=== PATIENT | female | born 2000 | race Caucasian/White ===

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

== ENCOUNTER 2018-06-25 19:23 | Emergency (ER) | payer SELFPAY ==
[2018-06-25] MEDS ORDERED: Sodium Chloride 0.9% 1000 ML 1,000 ML IV STA (19:50)
[2018-06-25] MEDS ORDERED: Zofran 4 MG/2 ML VIAL IV ONE (19:50)
--- NOTE | 2018-06-25 19:50 | ERPHSYRPT ---
- History of Present Illness Time Seen by Provider: 06/25/18 19:41 Source: patient Exam Limitations: no limitations Physician History: The patient is the patient is a 17-year-old female with her boyfriend complaining that she suddenly became hot, sick, and vomited twice. She now has bilateral lower rib pain after vomiting. She denies diarrhea. She denies abdominal pain. She denies fever. Her past missed her period is unknown because since she was on the depth or shot 2 years ago, her periods have been extremely irregular. She denies being lightheaded. Timing/Duration: today, hour(s) (1), gradual onset, improved Severity: mild Modifying Factors: Improves With: nothing Associated Symptoms: nausea, vomiting, other (rib pain), No abdominal pain, No chills, No syncope Allergies/Adverse Reactions: sulfamethoxazole [From Bactrim] Allergy (Verified 12/20/17 13:56) trimethoprim [From Bactrim] Allergy (Verified 12/20/17 13:56) Hx Tetanus, Diphtheria Vaccination/Date Given: No Hx Influenza Vaccination/Date Given: Yes Hx Pneumococcal Vaccination/Date Given: No - Review of Systems Constitutional: No Fever, No Chills Eyes: No Symptoms Ears, Nose, & Throat: No Symptoms Respiratory: No Cough, No Dyspnea Cardiac: Other (rib pain), No Chest Pain, No Edema, No Syncope Abdominal/Gastrointestinal: Nausea, Vomiting, No Abdominal Pain, No Diarrhea Genitourinary Symptoms: No Dysuria Musculoskeletal: No Back Pain, No Neck Pain Skin: No Rash Neurological: No Dizziness, No Focal Weakness, No Sensory Changes Psychological: No Symptoms Endocrine: No Symptoms Hematologic/Lymphatic: No Symptoms Immunological/Allergic: No Symptoms All Other Systems: Reviewed and Negative - Past Medical History Pertinent Past Medical History: Yes Neurological History: No Pertinent History ENT History: No Pertinent History Cardiac History: No Pertinent History Respiratory History: No Pertinent History Endocrine Medical History: No Pertinent History Musculoskeletal History: No Pertinent History GI Medical History: No Pertinent History History: No Pertinent History Psycho-Social History: No Pertinent History Female Reproductive Disorders: No Pertinent History Other Medical History: lt leg abscess--summer 2015 - Past Surgical History Past Surgical History: No Neuro Surgical History: No Pertinent History Cardiac: No Pertinent History Respiratory: No Pertinent History Gastrointestinal: No Pertinent History Genitourinary: No Pertinent History Musculoskeletal: No Pertinent History Female Surgical History: No Pertinent History - Social History Smoking Status: Current every day smoker How long have you smoked: 1 Exposure to second hand smoke: Yes Alcohol Use: None Drug Use: none Patient Lives Alone: No Significant Family History: no pertinent family hx - Nursing Vital Signs Nursing Vital Signs: Initial Vital Signs Temperature 98.6 F 06/25/18 19:23 Pulse Rate 73 06/25/18 19:23 Respiratory Rate 18 06/25/18 19:23 Blood Pressure 96/72 06/25/18 19:23 O2 Sat by Pulse Oximetry 100 06/25/18 19:23 Pain Scale Pain Intensity 10 - Physical Exam General Appearance: no apparent distress, alert Eye Exam: PERRL/EOMI, eyes nml inspection Ears, Nose, Throat Exam: normal ENT inspection, TMs normal, pharynx normal, moist mucous membranes Neck Exam: normal inspection, non-tender, supple, full range of motion Respiratory Exam: normal breath sounds, chest tenderness (mild tenderness to bilateral lower anterior ribs), lungs clear, No respiratory distress Cardiovascular Exam: regular rate/rhythm, normal heart sounds, normal peripheral pulses Gastrointestinal/Abdomen Exam: soft, normal bowel sounds, No tenderness, No mass Pelvic Exam: not done Rectal Exam: not done Back Exam: normal inspection, normal range of motion, No CVA tenderness, No vertebral tenderness Extremity Exam: normal inspection, normal range of motion, pelvis stable Neurologic Exam: alert, oriented x 3, cooperative, normal mood/affect, nml cerebellar function, nml station & gait, sensation nml, No motor deficits Skin Exam: normal color, warm, dry, No rash Lymphatic Exam: No adenopathy SpO2 Interpretation: normal SpO2: 100 Oxygen Delivery: Room Air Ordered Tests: Active Orders 24 hr Category Date Time Status IV Insertion STAT Care 06/25/18 19:50 Active CBC W DIFF Stat Lab 06/25/18 20:00 Completed CMP Stat Lab 06/25/18 20:00 Completed HCG QUALITATIVE,SERUM Stat Lab 06/25/18 20:00 Completed LIPASE Stat Lab 06/25/18 20:00 Completed Lactic Acid Stat Lab 06/25/18 20:00 Completed OCCULT BLOOD, EMESIS Stat Lab 06/25/18 20:57 Completed UA W/RFX UR CULTURE Stat Lab 06/25/18 20:58 Completed Urine Triage Profile Stat Lab 06/25/18 20:58 Completed Medication Summary Discontinued Medications Generic Name Dose Route Start Last Admin Trade Name Yuval PRN Reason Stop Dose Admin Acetaminophen 1,000 mg 06/25/18 20:12 06/25/18 20:42 Tylenol Extra Strength 500 Mg PO 06/25/18 20:13 1,000 mg STAT STA Administration Acetaminophen Confirm 06/25/18 20:16 Tylenol Extra Strength 500 Mg Administered 06/25/18 20:17 Dose 1,000 mg .ROUTE .STK-MED ONE Sodium Chloride 1,000 mls @ 999 mls/hr 06/25/18 19:50 06/25/18 20:04 Sodium Chloride 0.9% 1000 Ml IV 06/25/18 20:50 999 mls/hr .Q1H1M STA Administration Sodium Chloride Confirm 06/25/18 19:54 Sodium Chloride 0.9% 1000 Ml Administered 06/25/18 19:55 Dose 1,000 mls @ ud .ROUTE .STK-MED ONE Ondansetron HCl 4 mg 06/25/18 19:50 06/25/18 20:05 Zofran 4 Mg/2 Ml Vial IV 06/25/18 19:51 4 mg STAT ONE Administration Ondansetron HCl Confirm 06/25/18 19:54 Zofran 4 Mg/2 Ml Vial Administered 06/25/18 19:55 Dose 4 mg .ROUTE .STK-MED ONE Promethazine HCl 12.5 mg 06/25/18 20:46 06/25/18 20:53 Phenergan 25 Mg Inj IV 06/25/18 20:47 12.5 mg STAT ONE Administration Promethazine HCl Confirm 06/25/18 20:51 Phenergan 25 Mg Inj Administered 06/25/18 20:52 Dose 25 mg .ROUTE .STK-MED ONE Lab/Rad Data: Laboratory Result Diagrams 06/25/18 20:00 06/25/18 20:00 Laboratory Results 06/25/18 06/25/18 06/25/18 Range/Units 20:58 20:58 20:57 WBC (4.0-10.5) K/mm3 RBC (4.1-5.4) M/mm3 Hgb (12.0-16.0) gm/dl Hct (35-47) % MCV (78-100) fl MCH (26-32) pg MCHC (32-36) g/dl RDW (11.5-14.0) % Plt Count (150-450) K/mm3 MPV (6-9.5) fl Gran % (36.0-66.0) % Eos # (Auto) (0-0.5) Absolute Lymphs (auto) (1.0-4.6) Absolute Monos (auto) (0.0-1.3) Lymphocytes % (24.0-44.0) % Monocytes % (0.0-12.0) % Eosinophils % (0.00-5.0) % Basophils % (0.0-0.4) % Absolute Granulocytes (1.4-6.9) Basophils # (0-0.4) Sodium (137-145) mmol/L Potassium (3.5-5.1) mmol/L Chloride (98-107) mmol/L Carbon Dioxide (22-30) mmol/L Anion Gap (5-15) MEQ/L BUN (7-17) mg/dL Creatinine (0.52-1.04) mg/dL Estimated GFR ML/MIN Glucose (74-106) mg/dL Lactic Acid (0.4-2.0) Calcium (8.4-10.2) mg/dL Total Bilirubin (0.2-1.3) mg/dL AST (14-36) U/L ALT (0-35) U/L Alkaline Phosphatase (38-126) U/L Serum Total Protein (6.3-8.2) g/dL Albumin (3.5-5.0) g/dL Lipase (23-300) U/L Serum , Qual (Negative) Urine Color YELLOW (YELLOW) Urine Appearance CLEAR (CLEAR) Urine pH 7.0 (5-6) Ur Specific [place] 1.019 (1.005-1.025) Urine Protein NEGATIVE (Negative) Urine Ketones NEGATIVE (NEGATIVE) Urine Blood NEGATIVE (0-5) Lior/ul Urine Nitrite NEGATIVE (NEGATIVE) Urine Bilirubin NEGATIVE (NEGATIVE) Urine Urobilinogen NEGATIVE (0-1) mg/dL Ur Leukocyte Esterase NEGATIVE (NEGATIVE) Urine WBC (Auto) 3-5 (0-5) /HPF Urine RBC (Auto) 0-2 (0-2) /HPF U Hyaline Cast (Auto) 0-2 (0-2) /LPF U Epithel Cells (Auto) RARE (FEW) /HPF Urine Mucus (Auto) SLIGHT (NEGATIVE) /HPF Urine Culture Reflexed NO (NO) Urine Glucose NEGATIVE (NEGATIVE) mg/dL Emesis for Blood NEGATIVE (Negative) Urine Opiates Level NEGATIVE (NEGATIVE) Ur Methadone NEGATIVE (NEGATIVE) Urine Barbiturates NEGATIVE (NEGATIVE) Ur Phencyclidine (PCP) NEGATIVE (NEGATIVE) Urine Amphetamine NEGATIVE (NEGATIVE) U Benzodiazepine Level NEGATIVE (NEGATIVE) Urine Cocaine NEGATIVE (NEGATIVE) Urine Marijuana (THC) NEGATIVE (NEGATIVE) 06/25/18 06/25/18 06/25/18 Range/Units 20:00 20:00 20:00 WBC (4.0-10.5) K/mm3 RBC (4.1-5.4) M/mm3 Hgb (12.0-16.0) gm/dl Hct (35-47) % MCV (78-100) fl MCH (26-32) pg MCHC (32-36) g/dl RDW (11.5-14.0) % Plt Count (150-450) K/mm3 MPV (6-9.5) fl Gran % (36.0-66.0) % Eos # (Auto) (0-0.5) Absolute Lymphs (auto) (1.0-4.6) Absolute Monos (auto) (0.0-1.3) Lymphocytes % (24.0-44.0) % Monocytes % (0.0-12.0) % Eosinophils % (0.00-5.0) % Basophils % (0.0-0.4) % Absolute Granulocytes (1.4-6.9) Basophils # (0-0.4) Sodium 138 (137-145) mmol/L Potassium 3.5 (3.5-5.1) mmol/L Chloride 102 (98-107) mmol/L Carbon Dioxide 26 (22-30) mmol/L Anion Gap 13.8 (5-15) MEQ/L BUN 13 (7-17) mg/dL Creatinine 0.55 (0.52-1.04) mg/dL Estimated GFR > 60.0 ML/MIN Glucose 97 (74-106) mg/dL Lactic Acid 1.3 (0.4-2.0) Calcium 9.9 (8.4-10.2) mg/dL Total Bilirubin 0.40 (0.2-1.3) mg/dL AST 48 H (14-36) U/L ALT 50 H (0-35) U/L Alkaline Phosphatase 97 (38-126) U/L Serum Total Protein 7.3 (6.3-8.2) g/dL Albumin 4.6 (3.5-5.0) g/dL Lipase 167 (23-300) U/L Serum , Qual POSITIVE (Negative) Urine Color (YELLOW) Urine Appearance (CLEAR) Urine pH (5-6) Ur Specific [place] (1.005-1.025) Urine Protein (Negative) Urine Ketones (NEGATIVE) Urine Blood (0-5) Lior/ul Urine Nitrite (NEGATIVE) Urine Bilirubin (NEGATIVE) Urine Urobilinogen (0-1) mg/dL Ur Leukocyte Esterase (NEGATIVE) Urine WBC (Auto) (0-5) /HPF Urine RBC (Auto) (0-2) /HPF U Hyaline Cast (Auto) (0-2) /LPF U Epithel Cells (Auto) (FEW) /HPF Urine Mucus (Auto) (NEGATIVE) /HPF Urine Culture Reflexed (NO) Urine Glucose (NEGATIVE) mg/dL Emesis for Blood (Negative) Urine Opiates Level (NEGATIVE) Ur Methadone (NEGATIVE) Urine Barbiturates (NEGATIVE) Ur Phencyclidine (PCP) (NEGATIVE) Urine Amphetamine (NEGATIVE) U Benzodiazepine Level (NEGATIVE) Urine Cocaine (NEGATIVE) Urine Marijuana (THC) (NEGATIVE) 06/25/18 Range/Units 20:00 WBC 9.8 (4.0-10.5) K/mm3 RBC 4.66 (4.1-5.4) M/mm3 Hgb 14.6 (12.0-16.0) gm/dl Hct 42.4 (35-47) % MCV 91.0 (78-100) fl MCH 31.3 (26-32) pg MCHC 34.4 (32-36) g/dl RDW 12.0 (11.5-14.0) % Plt Count 285 (150-450) K/mm3 MPV 10.9 H (6-9.5) fl Gran % 52.1 (36.0-66.0) % Eos # (Auto) 0.41 (0-0.5) Absolute Lymphs (auto) 3.35 (1.0-4.6) Absolute Monos (auto) 0.90 (0.0-1.3) Lymphocytes % 34.1 (24.0-44.0) % Monocytes % 9.2 (0.0-12.0) % Eosinophils % 4.2 (0.00-5.0) % Basophils % 0.4 (0.0-0.4) % Absolute Granulocytes 5.12 (1.4-6.9) Basophils # 0.04 (0-0.4) Sodium (137-145) mmol/L Potassium (3.5-5.1) mmol/L Chloride (98-107) mmol/L Carbon Dioxide (22-30) mmol/L Anion Gap (5-15) MEQ/L BUN (7-17) mg/dL Creatinine (0.52-1.04) mg/dL Estimated GFR ML/MIN Glucose (74-106) mg/dL Lactic Acid (0.4-2.0) Calcium (8.4-10.2) mg/dL Total Bilirubin (0.2-1.3) mg/dL AST (14-36) U/L ALT (0-35) U/L Alkaline Phosphatase (38-126) U/L Serum Total Protein (6.3-8.2) g/dL Albumin (3.5-5.0) g/dL Lipase (23-300) U/L Serum , Qual (Negative) Urine Color (YELLOW) Urine Appearance (CLEAR) Urine pH (5-6) Ur Specific [place] (1.005-1.025) Urine Protein (Negative) Urine Ketones (NEGATIVE) Urine Blood (0-5) Lior/ul Urine Nitrite (NEGATIVE) Urine Bilirubin (NEGATIVE) Urine Urobilinogen (0-1) mg/dL Ur Leukocyte Esterase (NEGATIVE) Urine WBC (Auto) (0-5) /HPF Urine RBC (Auto) (0-2) /HPF U Hyaline Cast (Auto) (0-2) /LPF U Epithel Cells (Auto) (FEW) /HPF Urine Mucus (Auto) (NEGATIVE) /HPF Urine Culture Reflexed (NO) Urine Glucose (NEGATIVE) mg/dL Emesis for Blood (Negative) Urine Opiates Level (NEGATIVE) Ur Methadone (NEGATIVE) Urine Barbiturates (NEGATIVE) Ur Phencyclidine (PCP) (NEGATIVE) Urine Amphetamine (NEGATIVE) U Benzodiazepine Level (NEGATIVE) Urine Cocaine (NEGATIVE) Urine Marijuana (THC) (NEGATIVE) - Progress Progress: improved Progress Note: 06/25/18 20:30 The patient was given Zofran 4 mg IV. Several minutes after the Zofran, she had one large emesis. Counseled pt/family regarding: lab results, diagnosis, need for follow-up, smoking cessation - Departure Time of Disposition: 21:35 Departure Disposition: Home Clinical Impression: Vomiting, Condition: Stable Critical Care Time: No Referrals: NEVILLE TINSLEY NP [Primary Care Provider] - Additional Instructions: You had some episodes of vomiting this evening. Your laboratory tests shows that you are . You were given Zofran 4 mg, Phenergan 12.5 mg, and fluids by IV in the ER. You were given Tylenol 1000 mg orally in the ER. May continue to take Phenergan 25 mg orally every 8 hours as needed. Follow-up with a local OB doctor within the next week. Stop smoking. You may take Tylenol 1000 mg every 6-8 hours as needed. Prescriptions: Promethazine HCl 25 mg [Phenergan 25 mg] 25 mg PO Q8H PRN PRN #10 tablet PRN Reason: Nausea/Vomiting
[2018-06-25] MEDS ORDERED: Sodium Chloride 0.9% 1000 ML 1,000 ML ONE (19:54)
[2018-06-25] MEDS ORDERED: Zofran 4 MG/2 ML VIAL ONE (19:54)
[2018-06-25] MEDS ORDERED: TYLENOL EXTRA STRENGTH 500 MG PO STA (20:12)
[2018-06-25] MEDS ORDERED: TYLENOL EXTRA STRENGTH 500 MG ONE (20:16)
[2018-06-25 20:28] LABS: BASOPHIL % 0.4 % (0.0-0.4); Basophil (Absolute #) 0.04 (0-0.4); Eosinophil % 4.2 % (0.00-5.0); Eosinophil (Absolute #) 0.41 (0-0.5); Granulocyte Absolute (ANC) 5.12 (1.4-6.9); Granulocytes % 52.1 % (36.0-66.0); Hematocrit 42.4 % (35-47); Hemoglobin 14.6 gm/dl (12.0-16.0); Lymphocyte (Absolute #) 3.35 (1.0-4.6); Lymphocytes % 34.1 % (24.0-44.0); Mean Corpuscular Hemoglobin 31.3 pg (26-32); Mean Corpuscular Hgb Concent. 34.4 g/dl (32-36); Mean Platelet Volume 10.9 fl (6-9.5); Monocytes % 9.2 % (0.0-12.0); Platelet Count 285 K/mm3 (150-450); Red Blood Count 4.66 M/mm3 (4.1-5.4); White Blood Count 9.8 K/mm3 (4.0-10.5)
[2018-06-25 20:31] LABS: ALBUMIN 4.6 g/dL (3.5-5.0); ALKALINE PHOSPHATASE 97 U/L (38-126); ANION GAP 13.8 MEQ/L (5-15); BLOOD UREA NITROGEN 13 mg/dL (7-17); CHLORIDE 102 mmol/L (98-107); Calcium 9.9 mg/dL (8.4-10.2); Carbon Dioxide 26 mmol/L (22-30); Creatinine 1 0.55 mg/dL (0.52-1.04); Glucose 97 mg/dL (74-106); LIPASE 167 U/L (23-300); Potassium 3.5 mmol/L (3.5-5.1); SGOT/AST 48 U/L (14-36); SGPT/ALT 50 U/L (0-35); SODIUM 138 mmol/L (137-145); Total Protein 7.3 g/dL (6.3-8.2)
[2018-06-25] MEDS ORDERED: Phenergan 25 MG INJ IV ONE (20:46)
[2018-06-25 20:50] VITALS: BP 110/60; PULSE 68
[2018-06-25] MEDS ORDERED: Phenergan 25 MG INJ ONE (20:51)
[2018-06-25 21:21] LABS: Appearance CLEAR (CLEAR); Bilirubin NEGATIVE (NEGATIVE); Blood NEGATIVE Ery/ul (0-5); Glucose NEGATIVE (NEGATIVE); Ketones NEGATIVE (NEGATIVE); Leukocyte Esterase NEGATIVE (NEGATIVE); Nitrite NEGATIVE (NEGATIVE); Protein,Urine Dip NEGATIVE (Negative); Specific Gravity 1.019 (1.005-1.025); Urobilinogen NEGATIVE mg/dL (0-1)
[2018-06-25 21:26] LABS: Amphetamine,Urine NEGATIVE (NEGATIVE); Barbiturate,Urine NEGATIVE (NEGATIVE); Benzodiazepine,Urine NEGATIVE (NEGATIVE); Cocaine,Urine NEGATIVE (NEGATIVE); Methadone,Urine NEGATIVE (NEGATIVE); Opiate,Urine NEGATIVE (NEGATIVE); PCP,Urine NEGATIVE (NEGATIVE); THC,Urine NEGATIVE (NEGATIVE)
[2018-06-25 21:48] VITALS: O2SAT 96
== END 2018-06-25 21:48 | disposition home or self-care (01) ==
LOC: ED 19:23
DX: O21.9 Vomiting of pregnancy, unspecified (principal)
CPT/HCPCS: 36000; 36415; 80053; 80307; 81001; 82271; 83605; 83690; 84703; 85025; 96374; 96375; 99284; J2405; J2550; A9270-GY

== ENCOUNTER 2018-07-06 06:52 | Emergency (ER) | payer MEDICAID ==
--- NOTE | 2018-07-06 07:03 | ERPHSYRPT ---
- History of Present Illness Time Seen by Provider: 07/06/18 07:02 Source: patient, family Exam Limitations: no limitations Physician History: 17 y/o white female, who is 5 weeks , presents with several month h/o right forearm pain and swelling. pt sx tx with brace and resolved. sx returned this past tuesday. pt stated she continued to wear brace. Occurred: days ago (4) Method of Injury: other (no injury) Quality: aching Severity of Pain-Max: moderate Severity of Pain-Current: mild Extremities Pain Location: forearm: right Modifying Factors: Improves With: nothing Associated Symptoms: none, No back pain, No chest discomfort, No chest pain, No dyspnea, No short of breath, No vomiting Allergies/Adverse Reactions: sulfamethoxazole [From Bactrim] Allergy (Verified 12/20/17 13:56) trimethoprim [From Bactrim] Allergy (Verified 12/20/17 13:56) Home Medications: Vits W-Ca,Fe,FA(<1Mg) [] 1 each PO DAILY 07/06/18 [History] Hx Tetanus, Diphtheria Vaccination/Date Given: No Hx Influenza Vaccination/Date Given: Yes Hx Pneumococcal Vaccination/Date Given: No - Review of Systems Constitutional: No Symptoms Eyes: No Symptoms Ears, Nose, & Throat: No Symptoms Respiratory: No Symptoms Cardiac: No Symptoms Abdominal/Gastrointestinal: No Symptoms Genitourinary Symptoms: No Symptoms Musculoskeletal: Other (right forearm tenderness swelling) Skin: No Symptoms Neurological: No Symptoms Psychological: No Symptoms Endocrine: No Symptoms Hematologic/Lymphatic: No Symptoms Immunological/Allergic: No Symptoms All Other Systems: Reviewed and Negative - Past Medical History Pertinent Past Medical History: Yes Neurological History: No Pertinent History ENT History: No Pertinent History Cardiac History: No Pertinent History Respiratory History: No Pertinent History Endocrine Medical History: No Pertinent History Musculoskeletal History: No Pertinent History GI Medical History: No Pertinent History History: No Pertinent History Psycho-Social History: No Pertinent History Female Reproductive Disorders: No Pertinent History Other Medical History: lt leg abscess--summer 2015 - Past Surgical History Past Surgical History: No Neuro Surgical History: No Pertinent History Cardiac: No Pertinent History Respiratory: No Pertinent History Gastrointestinal: No Pertinent History Genitourinary: No Pertinent History Musculoskeletal: No Pertinent History Female Surgical History: No Pertinent History - Social History Smoking Status: Current every day smoker How long have you smoked: 1 Exposure to second hand smoke: Yes Alcohol Use: None Drug Use: none Patient Lives Alone: No Significant Family History: no pertinent family hx - Nursing Vital Signs Nursing Vital Signs: Initial Vital Signs Temperature 98.1 F 07/06/18 07:00 Pulse Rate 92 H 07/06/18 07:00 Respiratory Rate 16 07/06/18 07:00 Blood Pressure 106/60 07/06/18 07:00 O2 Sat by Pulse Oximetry 99 07/06/18 07:00 Pain Scale Pain Intensity 10 - Physical Exam General Appearance: no apparent distress, alert, anxiety Eyes, Ears, Nose, Throat Exam: normal ENT inspection Neck Exam: normal inspection, non-tender, supple, full range of motion Cardiovascular/Respiratory Exam: chest non-tender, normal breath sounds, regular rate/rhythm Abdominal Exam: non-tender, soft, No guarding, No tenderness Back Exam: normal inspection, normal range of motion, No CVA tenderness, No vertebral tenderness Shoulder Exam: normal inspection, non-tender, no evidence of injury, normal ROM Elbow/Forearm Exam: no evidence of injury, normal ROM, soft tissue tenderness, swelling (soft tissue right forearm; right elbow normal) Wrist Exam: normal inspection, non-tender, no evidence of injury, normal ROM Hand Exam: normal inspection, non-tender, no evidence of injury, normal ROM Neuro/Tendon Exam: normal sensation, normal motor functions, normal tendon functions Mental Status Exam: alert, oriented x 3, cooperative Skin Exam: normal color, warm, dry SpO2 Interpretation: normal Oxygen Delivery: Room Air - Course Nursing assessment & vital signs reviewed: Yes Ordered Tests: Active Orders 24 hr Category Date Time Status VENOUS UNILAT/LIMITED EXTREMIT [US] Stat Exams 07/06/18 07:18 Ordered Lab/Rad Data: venous doppler-negative for dvt. no hematoma or masses - Progress Progress: unchanged Counseled pt/family regarding: diagnosis, need for follow-up, rad results - Departure Time of Disposition: 08:46 Departure Disposition: Home Clinical Impression: Right forearm pain Condition: Stable Critical Care Time: No Referrals: NEVILLE TINSLEY NP [Primary Care Provider] - Additional Instructions: alternate ice and heat every 6 hours for 48 hours. use your brace and tylenol for pain. follow up with your primary doctor for further management.
[2018-07-06 08:26] VITALS: BP 104/64; PULSE 88; O2SAT 98
--- NOTE | 2018-07-06 09:28 | XRAY ---
Indication: Right wrist lump and pain. Two-dimensional sonogram and color Doppler imaging of the major venous vessels of the right upper extremity was performed. Comparison: None No thrombus seen in the visualized right jugular, subclavian, axillary, cephalic, brachial, basilic, median cubital, radial, and ulnar veins. These veins demonstrate normal compressibility and normal venous waveforms. Targeted ultrasound over the lump/pain demonstrates nonspecific tiny sliver of fluid. Impression: Right arm negative for DVT.
== END 2018-07-06 08:55 | disposition home or self-care (01) ==
LOC: ED 06:52
DX: O26.891 Other specified pregnancy related conditions, first trimester (principal); Z3A.01 Less than 8 weeks gestation of pregnancy; M79.631 Pain in right forearm
CPT/HCPCS: 93971; 99283

== ENCOUNTER 2018-12-16 23:53 | Emergency (ER) | payer OTHER ==
[2018-12-17 00:56] VITALS: BP 100/58; PULSE 85; O2SAT 98
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
== END 2018-12-17 01:32 | disposition home or self-care (01) ==
LOC: ED 23:53
DX: S80.01XA Contusion of right knee, initial encounter (principal); M25.561 Pain in right knee; V43.62XA Car passenger injured in collision with other type car in traffic accident, initial encounter; Z33.1 Pregnant state, incidental; Z3A.28 28 weeks gestation of pregnancy
CPT/HCPCS: 99283; L1830

== ENCOUNTER 2019-01-01 11:39 | Observation (INO) | payer OTHER ==
[2019-01-01 13:07] VITALS: BP 101/59; PULSE 75; O2SAT 98
== END 2019-01-01 13:12 | disposition home or self-care (01) ==
LOC: OB 11:39
PROVIDERS: ADMIT Family Medicine; ATTEND Family Medicine
DX: Z34.03 Encounter for supervision of normal first pregnancy, third trimester (principal)
CPT/HCPCS: G0378

== ENCOUNTER 2019-01-29 12:00 | Observation (INO) | payer OTHER ==
[2019-01-29 12:31] VITALS: BP 112/56; PULSE 99; O2SAT 97
== END 2019-01-29 14:00 | disposition home or self-care (01) ==
LOC: OB 12:00
PROVIDERS: ADMIT Family Medicine; ATTEND Family Medicine
DX: Z34.03 Encounter for supervision of normal first pregnancy, third trimester (principal)
CPT/HCPCS: 59025; G0378

== ENCOUNTER 2019-02-25 14:24 | Observation (INO) | payer OTHER ==
[2019-02-25 14:55] VITALS: BP 111/70; PULSE 109
[2019-02-25 15:28] LABS: Appearance CLOUDY (CLEAR); Bacteria MANY /HPF (NEGATIVE); Bilirubin NEGATIVE (NEGATIVE); Blood NEGATIVE Ery/ul (0-5); Epithelial Cells MODERATE /HPF (FEW); Glucose NEGATIVE (NEGATIVE); Ketones NEGATIVE (NEGATIVE); Leukocyte Esterase LARGE (NEGATIVE); Mucus SLIGHT /HPF (NEGATIVE); Nitrite NEGATIVE (NEGATIVE); Protein,Urine Dip NEGATIVE (Negative); RBC 0-2 /HPF (0-2); Specific Gravity 1.009 (1.005-1.025); Urobilinogen NEGATIVE mg/dL (0-1)
[2019-02-25 15:37] LABS: Amphetamine,Urine NEGATIVE (NEGATIVE); Barbiturate,Urine NEGATIVE (NEGATIVE); Benzodiazepine,Urine NEGATIVE (NEGATIVE); Cocaine,Urine NEGATIVE (NEGATIVE); Methadone,Urine NEGATIVE (NEGATIVE); Opiate,Urine NEGATIVE (NEGATIVE); PCP,Urine NEGATIVE (NEGATIVE); THC,Urine NEGATIVE (NEGATIVE)
== END 2019-02-25 16:20 | disposition home or self-care (01) ==
LOC: UNDOADMOB 14:24 → OB 14:24 → UNDODISOB 16:20
PROVIDERS: ADMIT Family Medicine; ATTEND Family Medicine
DX: Z34.03 Encounter for supervision of normal first pregnancy, third trimester (principal)
CPT/HCPCS: 80307; 81001; 87086; G0378

== ENCOUNTER 2019-03-04 02:27 | Inpatient (IN) | payer OTHER ==
[2019-03-04 03:47] LABS: Amphetamine,Urine NEGATIVE (NEGATIVE); Barbiturate,Urine NEGATIVE (NEGATIVE); Benzodiazepine,Urine NEGATIVE (NEGATIVE); Cocaine,Urine NEGATIVE (NEGATIVE); Methadone,Urine NEGATIVE (NEGATIVE); Opiate,Urine NEGATIVE (NEGATIVE); PCP,Urine NEGATIVE (NEGATIVE); THC,Urine NEGATIVE (NEGATIVE)
[2019-03-04] MEDS ORDERED: Lactated Ringers 1,000 ML IV ONE ×3 (07:25→08:35)
[2019-03-04] MEDS ORDERED: PITOCIN 30 UNITS/ LR 500 ML 500 ML IV SCH (07:30)
[2019-03-04] MEDS ORDERED: Ephedrine Sulfate 50 MG/ML IV PRN (07:33)
[2019-03-04] MEDS ORDERED: OB EPIDURAL NAROPIN/SUFENTANIL IN NACL EPIDURAL PRN (07:33)
[2019-03-04] MEDS ORDERED: XYLOCAINE 2%/Epi 1:200000 20ML VIAL MPF IJ SCH (07:45)
[2019-03-04] MEDS ORDERED: XYLOCAINE 2%/Epi 1:200000 20ML VIAL MPF ONE (07:58)
[2019-03-04 08:00] LABS: Hemoglobin 11.9 gm/dl (12.0-16.0); Mean Cell Volume 95.1 fl (78-100); Mean Corpuscular Hemoglobin 32.3 pg (26-32); Platelet Count 303 K/mm3 (150-450); Red Blood Count 3.68 M/mm3 (4.1-5.4); Red Cell Distribution Width 12.3 % (11.5-14.0); White Blood Count 19.8 K/mm3 (4.0-10.5)
[2019-03-04 08:47] LABS: Lymphocytes 15 % (24-44); Neutrophils 85 % (36.0-66.0); Total Cells Counted 100
[2019-03-04 08:48] LABS: Platelet Estimate NORMAL (NORMAL)
[2019-03-04] MEDS: Lactated Ringers 1,000 ML IV SCH ×2 (09:15→18:19)
[2019-03-04 10:10] VITALS: O2SAT 100
[2019-03-04] MEDS ORDERED: XYLOCAINE 1% HCL 20 ML MDV IJ PRN (12:31)
[2019-03-04] MEDS ORDERED: Dulcolax 10 MG SUPP PR PRN (18:22)
[2019-03-04] MEDS ORDERED: CORTISONE 1% CREAM TP PRN (18:22)
[2019-03-04] MEDS ORDERED: Mylicon 80MG PO PRN (18:22)
[2019-03-04] MEDS ORDERED: Anucort-HC SUPPOSITORY PR PRN (18:22)
[2019-03-04] MEDS ORDERED: Dermoplast Spray TP PRN (18:22)
[2019-03-04] MEDS ORDERED: TYLENOL EXTRA STRENGTH 500 MG PO PRN (18:22)
[2019-03-04] MEDS ORDERED: LANSINOH 40 GM TOP PRN (18:22)
[2019-03-04] MEDS ORDERED: NORCO 5/325 MG PO PRN (18:22)
[2019-03-04] MEDS: MOTRIN 400 MG PO PRN (22:48)
[2019-03-04] MEDS: Colace 100 MG PO SCH ×2 (22:56→23:11)
[2019-03-05 05:28] LABS: Hematocrit 32.1 % (35-47); Hemoglobin 10.9 gm/dl (12.0-16.0); Mean Cell Volume 95.8 fl (78-100); Mean Corpuscular Hemoglobin 32.5 pg (26-32); Mean Platelet Volume 10.3 fl (6-9.5); Platelet Count 282 K/mm3 (150-450); Red Blood Count 3.35 M/mm3 (4.1-5.4); Red Cell Distribution Width 12.4 % (11.5-14.0); White Blood Count 22.9 K/mm3 (4.0-10.5)
[2019-03-05 06:20] LABS: Lymphocytes 23 % (24-44); Monocyte 7 % (0.0-12.0); Neutrophils 70 % (36.0-66.0); Total Cells Counted 100
[2019-03-05 06:22] LABS: Platelet Estimate NORMAL (NORMAL)
[2019-03-05] MEDS: Colace 100 MG PO SCH ×2 (11:50→21:03)
[2019-03-05] MEDS: FERREX 150 PO SCH (11:50)
[2019-03-05] MEDS: MOTRIN 400 MG PO PRN ×2 (13:25→22:22)
[2019-03-06 05:45] LABS: BASOPHIL % 0.5 % (0.0-0.4); Basophil (Absolute #) 0.07 (0-0.4); Eosinophil % 3.7 % (0.00-5.0); Eosinophil (Absolute #) 0.55 (0-0.5); Granulocyte Absolute (ANC) 8.96 (1.4-6.9); Hematocrit 32.8 % (35-47); Hemoglobin 11.1 gm/dl (12.0-16.0); Lymphocyte (Absolute #) 3.96 (1.0-4.6); Lymphocytes % 26.9 % (24.0-44.0); Mean Corpuscular Hemoglobin 32.8 pg (26-32); Mean Corpuscular Hgb Concent. 33.8 g/dl (32-36); Mean Platelet Volume 10.4 fl (6-9.5); Monocytes % 7.9 % (0.0-12.0); Platelet Count 282 K/mm3 (150-450); Red Blood Count 3.38 M/mm3 (4.1-5.4); Red Cell Distribution Width 12.6 % (11.5-14.0); White Blood Count 14.7 K/mm3 (4.0-10.5)
--- NOTE | 2019-03-06 07:40 | PCM.DS ---
Discharge Summary Date of Admission: 03/04/19 07:30 Admitting Physician: CAMILA BURGER Primary Care Provider: CAMILA BURGER Allergies Allergies sulfamethoxazole [From Bactrim] Allergy (Severe, Verified 01/29/19 12:15) hives and trouble breathing trimethoprim [From Bactrim] Allergy (Severe, Verified 01/29/19 12:15) hives and trouble breathing Hospital Summary - Hospital Course Hospital Course: Pt came in as 18 yo at 39w 2d in spontaneous labor. AROM with clear fluid. She delivered a 6lb 9oz baby girl without complication; had no sutures. Placenta delivered spontaneously, intact. Baby , no issues. Mom using motrin for pain. Discharging to home today. - Vitals & Intake/Output Vital Signs: Vital Signs Temperature 98.0 F 03/06/19 02:00 Pulse Rate 77 03/06/19 02:00 Respiratory Rate 18 03/06/19 02:00 Blood Pressure 111/62 03/06/19 02:00 O2 Sat by Pulse Oximetry 100 03/04/19 11:30 Intake & Output: Intake & Output 03/03/19 03/04/19 03/05/19 03/06/19 11:59 11:59 11:59 11:59 Intake Total 2724 Output Total 500 Balance 2224 Weight 75.296 kg - Lab Result Diagrams: 03/06/19 05:05 Lab Results-Last 24 Hrs: Lab Results-Last 24 Hours 03/06/19 Range/Units 05:05 WBC 14.7 H (4.0-10.5) K/mm3 RBC 3.38 L (4.1-5.4) M/mm3 Hgb 11.1 L (12.0-16.0) gm/dl Hct 32.8 L (35-47) % MCV 97.0 (78-100) fl MCH 32.8 H (26-32) pg MCHC 33.8 (32-36) g/dl RDW 12.6 (11.5-14.0) % Plt Count 282 (150-450) K/mm3 MPV 10.4 H (6-9.5) fl Gran % 61.0 (36.0-66.0) % Eos # (Auto) 0.55 H (0-0.5) Absolute Lymphs (auto) 3.96 (1.0-4.6) Absolute Monos (auto) 1.16 (0.0-1.3) Lymphocytes % 26.9 (24.0-44.0) % Monocytes % 7.9 (0.0-12.0) % Eosinophils % 3.7 (0.00-5.0) % Basophils % 0.5 (0.0-0.4) % Absolute Granulocytes 8.96 H (1.4-6.9) Basophils # 0.07 (0-0.4) Micro Results-Entire Visit: Microbiology 03/04/19 11:00 Urine Culture - Final Catherized NO GROWTH - Procedures and Test Procedures and Tests throughout Hospitalization: Therapy Orders & Screens 03/04/19 17:58 Standby Routine Comment: Diagnosis: R/O Labor Discharge Exam General Appearance: no apparent distress, alert Neurologic Exam: oriented x 3, cooperative Eye Exam: eyes nml inspection Ears, Nose, Throat Exam: moist mucous membranes Neck Exam: normal inspection Respiratory Exam: normal breath sounds, lungs clear, No crackles/rales, No rhonchi, No wheezing Cardiovascular Exam: regular rate/rhythm, normal heart sounds, No murmur Gastrointestinal/Abdomen Exam: soft, normal bowel sounds, other (fundus firming inferior to umbilicus), No tenderness, No distention Extremity Exam: normal inspection, No pedal edema, No swelling Skin Exam: normal color, warm, dry, No rash Final Diagnosis/Problem List - Final Discharge Diagnosis/Problem (1) Spontaneous vaginal delivery Current Visit: Yes Status: Acute Assessment & Plan: Doing great, home today. Code(s): O80 - ENCOUNTER FOR FULL-TERM UNCOMPLICATED DELIVERY (2) Leukocytosis Current Visit: Yes Status: Acute Assessment & Plan: resolving Code(s): D72.829 - ELEVATED WHITE BLOOD CELL COUNT, UNSPECIFIED (3) Anemia Current Visit: Yes Status: Acute Assessment & Plan: very mild, not home on iron Code(s): D64.9 - ANEMIA, UNSPECIFIED - Discharge Disposition: Home, Self-Care Condition: Good Prescriptions: New Ibuprofen 600 mg PO TID PRN #35 tablet PRN Reason: Pain Continue Vits W-Ca,Fe,FA(<1Mg) [] 1 tab PO DAILY Discontinued Ferrous Gluconate 324 mg PO DAILY Follow up with: CAMILA BURGER [Primary Care Provider] - 1 Week
[2019-03-06] MEDS: FERREX 150 PO SCH (09:10)
[2019-03-06] MEDS: Colace 100 MG PO SCH (09:11)
[2019-03-06 16:33] VITALS: BP 101/57; PULSE 68
== END 2019-03-06 19:10 | disposition home or self-care (01) | DRG 807 ==
LOC: OB 02:27 → OBSVTOIN 07:30 → OB 07:30
PROVIDERS: ADMIT Family Medicine; ATTEND Family Medicine
PROC: 10E0XZZ Delivery of Products of Conception, External Approach (ICD-10-PCS; principal; 2019-03-04)
DX: O70.0 First degree perineal laceration during delivery (principal); Z37.0 Single live birth; Z3A.39 39 weeks gestation of pregnancy; D64.9 Anemia, unspecified; D72.829 Elevated white blood cell count, unspecified
CPT/HCPCS: 36415; 80307; 85025; 87086; 87340; 94799; G0378; J2590; J2795; A9270-GY

== ENCOUNTER 2019-03-26 19:49 | Observation (INO) | payer OTHER ==
[2019-03-26] MEDS ORDERED: Sodium Chloride 0.9% 1000 ML 1,000 ML IV STA (21:11)
--- NOTE | 2019-03-26 21:16 | ERPHSYRPT ---
- History of Present Illness Time Seen by Provider: 03/26/19 21:13 Source: patient Exam Limitations: no limitations Patient Subjective Stated Complaint: Fever/william breast pain Triage Nursing Assessment: Patient ambulated back to ED and transferred self to bed. Patient complains of fever as high as 99.9 prior to coming in. Patient complains of william breast pain 06/21. Patient had baby 3 weeks ago. Patient has been and unable to for the pain. William breasts noted to be red, swollen and painful with crusty yellow drainage coming from right breast nipple. Physician History: 18-year-old white female status post vaginal delivery 3 weeks ago. Arrives with complaint of bilateral breast tenderness erythema to bilateral breast she states she has a mucousy discharge from her breasts. And temperature to 99.9 symptoms since today she states she's had some vomiting. Past medical history left leg abscess. Past surgical history negative. Timing/Duration: today Severity: moderate Modifying Factors: Improves With: nothing Associated Symptoms: nausea, vomiting, fever (temperature 99.9), other ( bilateral breast tenderness,), No abdominal pain, No shortness of breath, No heartburn, No diaphoresis, No cough, No chills, No chest pain, No headaches, No loss of appetite, No malaise, No rash, No syncope, No seizure, No weakness Allergies/Adverse Reactions: sulfamethoxazole [From Bactrim] Allergy (Severe, Verified 03/26/19 20:47) hives and trouble breathing trimethoprim [From Bactrim] Allergy (Severe, Verified 03/26/19 20:47) hives and trouble breathing Home Medications: Vits W-Ca,Fe,FA(<1Mg) [] 1 tab PO DAILY 07/06/18 [History] Hx Tetanus, Diphtheria Vaccination/Date Given: Yes Hx Influenza Vaccination/Date Given: Yes Hx Pneumococcal Vaccination/Date Given: No Immunizations Up to Date: Yes - Review of Systems Constitutional: Fever, No Chills, No Fatigue, No Lethargy, No Malaise, No Night Sweats, No Weakness, No Weight Loss Eyes: No Symptoms Ears, Nose, & Throat: No Symptoms Respiratory: No Cough, No Dyspnea Cardiac: No Chest Pain, No Edema, No Syncope Abdominal/Gastrointestinal: Nausea, Vomiting, No Abdominal Pain, No Diarrhea, No Constipation, No Hematemesis, No Hematochezia, No Melena, No Dysphagia, No Appetite Changes Genitourinary Symptoms: No Dysuria Musculoskeletal: No Back Pain, No Neck Pain Skin: Other (bilateral breast tenderness, erythema both breasts) Neurological: No Dizziness, No Focal Weakness, No Sensory Changes Psychological: No Symptoms Endocrine: No Symptoms All Other Systems: Reviewed and Negative - Past Medical History Pertinent Past Medical History: Yes Neurological History: No Pertinent History ENT History: No Pertinent History Cardiac History: No Pertinent History Respiratory History: No Pertinent History Endocrine Medical History: No Pertinent History Musculoskeletal History: No Pertinent History GI Medical History: No Pertinent History History: No Pertinent History Psycho-Social History: No Pertinent History Female Reproductive Disorders: No Pertinent History Other Medical History: lt leg abscess--summer 2015 - Past Surgical History Past Surgical History: No Neuro Surgical History: No Pertinent History Cardiac: No Pertinent History Respiratory: No Pertinent History Gastrointestinal: No Pertinent History Genitourinary: No Pertinent History Musculoskeletal: No Pertinent History Female Surgical History: No Pertinent History - Social History Smoking Status: Current every day smoker How long have you smoked: 3 years Exposure to second hand smoke: Yes Alcohol Use: None Drug Use: none Patient Lives Alone: No Significant Family History: no pertinent family hx - Female History Hx Last Menstrual Period: 05/27/2018 Hx Now: No - Nursing Vital Signs Nursing Vital Signs: Initial Vital Signs Temperature 99.9 F 03/26/19 20:50 Pulse Rate 117 H 03/26/19 20:50 Respiratory Rate 20 03/26/19 20:50 Blood Pressure 129/86 03/26/19 20:50 O2 Sat by Pulse Oximetry 98 03/26/19 20:50 Pain Scale Pain Intensity 10 - Physical Exam General Appearance: mild distress, alert Eye Exam: PERRL/EOMI, eyes nml inspection Ears, Nose, Throat Exam: normal ENT inspection, TMs normal, pharynx normal, moist mucous membranes Neck Exam: normal inspection, non-tender, supple, full range of motion Respiratory Exam: normal breath sounds, lungs clear, No respiratory distress Cardiovascular Exam: regular rate/rhythm, normal heart sounds, normal peripheral pulses, capillary refill <2 sec Gastrointestinal/Abdomen Exam: soft, normal bowel sounds, No tenderness, No mass Back Exam: normal inspection, normal range of motion, No CVA tenderness, No vertebral tenderness Extremity Exam: normal inspection, normal range of motion, pelvis stable Neurologic Exam: alert, oriented x 3, cooperative, normal mood/affect, nml cerebellar function, nml station & gait, sensation nml, No motor deficits Skin Exam: other (breasts are tender, erythema extending approximately 1.5 cm past areola bilaterally) SpO2 Interpretation: normal (98%) SpO2: 98 Ordered Tests: Active Orders 24 hr Category Date Time Status IV Insertion STAT Care 03/26/19 21:11 Active CBC W DIFF Stat Lab 03/26/19 21:40 Completed CMP Stat Lab 03/26/19 21:40 Completed CULTURE,URINE Stat Lab 03/26/19 21:30 Received CULTURE,WOUND Stat Lab 03/26/19 21:45 Received Lactic Acid Stat Lab 03/26/19 22:05 Completed UA W/RFX UR CULTURE Stat Lab 03/26/19 21:30 Completed Medication Summary Generic Name Dose Route Start Last Admin Trade Name Freq PRN Reason Stop Dose Admin Ceftriaxone Sodium/Dextrose 1 g in 50 mls @ 100 mls/hr 03/26/19 22:07 Rocephin 1 Gm-D5w 50 Ml Bag IV 03/26/19 22:36 STAT STA Discontinued Medications Generic Name Dose Route Start Last Admin Trade Name Freq PRN Reason Stop Dose Admin Acetaminophen 650 mg 03/26/19 22:08 Tylenol 325 Mg PO 03/26/19 22:09 STAT ONE Sodium Chloride 1,000 mls @ 999 mls/hr 03/26/19 21:11 03/26/19 21:42 Sodium Chloride 0.9% 1000 Ml IV 03/26/19 22:11 999 mls/hr .Q1H1M STA Administration Sodium Chloride Confirm 03/26/19 21:29 Sodium Chloride 0.9% 1000 Ml Administered 03/26/19 21:30 Dose 1,000 mls @ ud .ROUTE .STK-MED ONE Ceftriaxone Sodium/Dextrose Confirm 03/26/19 22:09 Rocephin 1 Gm-D5w 50 Ml Bag Administered 03/26/19 22:10 Dose 1 g in 50 mls @ ud IV .STK-MED ONE Lab/Rad Data: Laboratory Result Diagrams 03/26/19 21:40 03/26/19 21:40 Laboratory Results 03/26/19 03/26/19 03/26/19 Range/Units 22:05 21:40 21:40 WBC 17.7 H (4.0-10.5) K/mm3 RBC 4.17 (4.1-5.4) M/mm3 Hgb 13.9 (12.0-16.0) gm/dl Hct 39.2 (35-47) % MCV 94.0 (78-100) fl MCH 33.3 H (26-32) pg MCHC 35.5 (32-36) g/dl RDW 11.8 (11.5-14.0) % Plt Count 295 (150-450) K/mm3 MPV 10.6 H (6-9.5) fl Gran % 90.0 H (36.0-66.0) % Eos # (Auto) 0.18 (0-0.5) Absolute Lymphs (auto) 1.14 (1.0-4.6) Absolute Monos (auto) 0.43 (0.0-1.3) Lymphocytes % 6.4 L (24.0-44.0) % Monocytes % 2.4 (0.0-12.0) % Eosinophils % 1.0 (0.00-5.0) % Basophils % 0.2 (0.0-0.4) % Absolute Granulocytes 15.89 H (1.4-6.9) Basophils # 0.04 (0-0.4) Sodium 138 (137-145) mmol/L Potassium 4.2 (3.5-5.1) mmol/L Chloride 108 H (98-107) mmol/L Carbon Dioxide 23 (22-30) mmol/L Anion Gap 12.2 (5-15) MEQ/L BUN 11 (7-17) mg/dL Creatinine 0.63 (0.52-1.04) mg/dL Estimated GFR > 60.0 ML/MIN Glucose 85 (74-106) mg/dL Lactic Acid 1.0 (0.4-2.0) Calcium 9.6 (8.4-10.2) mg/dL Total Bilirubin 0.60 (0.2-1.3) mg/dL AST 17 (14-36) U/L ALT 13 (0-35) U/L Alkaline Phosphatase 128 H (38-126) U/L Serum Total Protein 7.8 (6.3-8.2) g/dL Albumin 4.4 (3.5-5.0) g/dL Urine Color (YELLOW) Urine Appearance (CLEAR) Urine pH (5-6) Ur Specific [place] (1.005-1.025) Urine Protein (Negative) Urine Ketones (NEGATIVE) Urine Blood (0-5) Lior/ul Urine Nitrite (NEGATIVE) Urine Bilirubin (NEGATIVE) Urine Urobilinogen (0-1) mg/dL Ur Leukocyte Esterase (NEGATIVE) Urine WBC (Auto) (0-5) /HPF Urine RBC (Auto) (0-2) /HPF U Epithel Cells (Auto) (FEW) /HPF Urine Bacteria (Auto) (NEGATIVE) /HPF Urine Culture Reflexed (NO) Urine Glucose (NEGATIVE) mg/dL 03/26/19 Range/Units 21:30 WBC (4.0-10.5) K/mm3 RBC (4.1-5.4) M/mm3 Hgb (12.0-16.0) gm/dl Hct (35-47) % MCV (78-100) fl MCH (26-32) pg MCHC (32-36) g/dl RDW (11.5-14.0) % Plt Count (150-450) K/mm3 MPV (6-9.5) fl Gran % (36.0-66.0) % Eos # (Auto) (0-0.5) Absolute Lymphs (auto) (1.0-4.6) Absolute Monos (auto) (0.0-1.3) Lymphocytes % (24.0-44.0) % Monocytes % (0.0-12.0) % Eosinophils % (0.00-5.0) % Basophils % (0.0-0.4) % Absolute Granulocytes (1.4-6.9) Basophils # (0-0.4) Sodium (137-145) mmol/L Potassium (3.5-5.1) mmol/L Chloride (98-107) mmol/L Carbon Dioxide (22-30) mmol/L Anion Gap (5-15) MEQ/L BUN (7-17) mg/dL Creatinine (0.52-1.04) mg/dL Estimated GFR ML/MIN Glucose (74-106) mg/dL Lactic Acid (0.4-2.0) Calcium (8.4-10.2) mg/dL Total Bilirubin (0.2-1.3) mg/dL AST (14-36) U/L ALT (0-35) U/L Alkaline Phosphatase (38-126) U/L Serum Total Protein (6.3-8.2) g/dL Albumin (3.5-5.0) g/dL Urine Color YELLOW (YELLOW) Urine Appearance SLIGHTLY CLOUDY (CLEAR) Urine pH 5.0 (5-6) Ur Specific [place] 1.010 (1.005-1.025) Urine Protein NEGATIVE (Negative) Urine Ketones NEGATIVE (NEGATIVE) Urine Blood MODERATE (0-5) Lior/ul Urine Nitrite NEGATIVE (NEGATIVE) Urine Bilirubin NEGATIVE (NEGATIVE) Urine Urobilinogen NEGATIVE (0-1) mg/dL Ur Leukocyte Esterase MODERATE (NEGATIVE) Urine WBC (Auto) 26-50 (0-5) /HPF Urine RBC (Auto) 11-15 (0-2) /HPF U Epithel Cells (Auto) MODERATE (FEW) /HPF Urine Bacteria (Auto) FEW (NEGATIVE) /HPF Urine Culture Reflexed YES (NO) Urine Glucose NEGATIVE (NEGATIVE) mg/dL - Progress Progress: improved Progress Note: 03/26/19 22:12 Patient's temperature increased to 102.8. Lactate has been ordered and results are pending. Rocephin 1 g IV has been ordered for patient. Patient is receiving 1 L of normal saline. Blood cultures have been ordered Tylenol 650 mg have been ordered. I have discussed the patient's case with Dr. Gomez. Will plan to place patient on observation. Continue Tylenol and IV fluids. Continue Rocephin. Impression 1 mastitis. 2 fever. 03/26/19 22:15 Patient's lactate 1.0. She has good perfusion to all extremities vitals are stable with the exception of elevated temperature. Patient does have a UTI as well - Departure Departure Disposition: Observation Clinical Impression: Mastitis Fever Qualifiers: Fever type: unspecified Qualified Code(s): R50.9 - Fever, unspecified UTI (urinary tract infection) Qualifiers: Urinary tract infection type: site unspecified Hematuria presence: without hematuria Qualified Code(s): N39.0 - Urinary tract infection, site not specified Condition: Fair Critical Care Time: No Referrals: CAMILA GOMEZ [Primary Care Provider] -
[2019-03-26] MEDS ORDERED: Sodium Chloride 0.9% 1000 ML 1,000 ML ONE (21:29)
[2019-03-26 21:51] LABS: BASOPHIL % 0.2 % (0.0-0.4); Basophil (Absolute #) 0.04 (0-0.4); Eosinophil (Absolute #) 0.18 (0-0.5); Granulocyte Absolute (ANC) 15.89 (1.4-6.9); Hematocrit 39.2 % (35-47); Hemoglobin 13.9 gm/dl (12.0-16.0); Lymphocyte (Absolute #) 1.14 (1.0-4.6); Lymphocytes % 6.4 % (24.0-44.0); Mean Corpuscular Hemoglobin 33.3 pg (26-32); Mean Corpuscular Hgb Concent. 35.5 g/dl (32-36); Mean Platelet Volume 10.6 fl (6-9.5); Monocyte (Absolute #) 0.43 (0.0-1.3); Monocytes % 2.4 % (0.0-12.0); Platelet Count 295 K/mm3 (150-450); Red Blood Count 4.17 M/mm3 (4.1-5.4); Red Cell Distribution Width 11.8 % (11.5-14.0); White Blood Count 17.7 K/mm3 (4.0-10.5)
[2019-03-26 21:57] LABS: Appearance SLIGHTLY CLOUDY (CLEAR); Bacteria FEW /HPF (NEGATIVE); Bilirubin NEGATIVE (NEGATIVE); Blood MODERATE Ery/ul (0-5); Epithelial Cells MODERATE /HPF (FEW); Glucose NEGATIVE (NEGATIVE); Ketones NEGATIVE (NEGATIVE); Leukocyte Esterase MODERATE (NEGATIVE); Nitrite NEGATIVE (NEGATIVE); Protein,Urine Dip NEGATIVE (Negative); Urobilinogen NEGATIVE mg/dL (0-1); WBC 26-50 /HPF (0-5)
[2019-03-26 22:02] LABS: ALBUMIN 4.4 g/dL (3.5-5.0); ALKALINE PHOSPHATASE 128 U/L (38-126); ANION GAP 12.2 MEQ/L (5-15); BLOOD UREA NITROGEN 11 mg/dL (7-17); CHLORIDE 108 mmol/L (98-107); Calcium 9.6 mg/dL (8.4-10.2); Carbon Dioxide 23 mmol/L (22-30); Creatinine 1 0.63 mg/dL (0.52-1.04); Glucose 85 mg/dL (74-106); Potassium 4.2 mmol/L (3.5-5.1); SGOT/AST 17 U/L (14-36); SGPT/ALT 13 U/L (0-35); SODIUM 138 mmol/L (137-145); Total Protein 7.8 g/dL (6.3-8.2)
[2019-03-26] MEDS ORDERED: ROCEPHIN 1 Gm-D5w 50 ml Bag** 1 G/50 ML IVPB IV STA (22:07)
[2019-03-26] MEDS ORDERED: TYLENOL 325 MG PO ONE (22:08)
[2019-03-26] MEDS ORDERED: ROCEPHIN 1 Gm-D5w 50 ml Bag** 1 G/50 ML IVPB IV ONE (22:09)
[2019-03-26] MEDS ORDERED: TYLENOL 325 MG ONE (22:14)
[2019-03-26] MEDS ORDERED: Sodium Chloride 0.9% 1000 ML 1,000 ML IV SCH (22:45)
[2019-03-26] MEDS ORDERED: TYLENOL 325 MG PO PRN (22:45)
[2019-03-27 06:04] LABS: BASOPHIL % 0.2 % (0.0-0.4); Basophil (Absolute #) 0.02 (0-0.4); Eosinophil % 3.3 % (0.00-5.0); Eosinophil (Absolute #) 0.36 (0-0.5); Granulocytes % 70.8 % (36.0-66.0); Hemoglobin 11.4 gm/dl (12.0-16.0); Lymphocyte (Absolute #) 2.09 (1.0-4.6); Lymphocytes % 19.2 % (24.0-44.0); Mean Cell Volume 95.4 fl (78-100); Mean Corpuscular Hemoglobin 32.9 pg (26-32); Mean Corpuscular Hgb Concent. 34.5 g/dl (32-36); Mean Platelet Volume 10.6 fl (6-9.5); Monocyte (Absolute #) 0.71 (0.0-1.3); Monocytes % 6.5 % (0.0-12.0); Platelet Count 258 K/mm3 (150-450); Red Blood Count 3.46 M/mm3 (4.1-5.4); Red Cell Distribution Width 11.7 % (11.5-14.0); White Blood Count 10.9 K/mm3 (4.0-10.5)
[2019-03-27 06:25] LABS: ALBUMIN 3.4 g/dL (3.5-5.0); ALKALINE PHOSPHATASE 89 U/L (38-126); ANION GAP 8.2 MEQ/L (5-15); BLOOD UREA NITROGEN 9 mg/dL (7-17); CHLORIDE 109 mmol/L (98-107); Calcium 8.5 mg/dL (8.4-10.2); Carbon Dioxide 25 mmol/L (22-30); Creatinine 1 0.68 mg/dL (0.52-1.04); Glucose 87 mg/dL (74-106); Potassium 3.3 mmol/L (3.5-5.1); SGOT/AST 14 U/L (14-36); SGPT/ALT 11 U/L (0-35); SODIUM 139 mmol/L (137-145); Total Protein 6.1 g/dL (6.3-8.2)
[2019-03-27 08:16] VITALS: O2SAT 95
--- NOTE | 2019-03-27 09:17 | PCM.SSS ---
History of Present Illness - Chief Complaint Chief Complaint: Mastitis, Fever, UTI History of Present Illness: is a 18 year old female pt of mine from [place] [address] approx 3 weeks post , who was admitted through ER with mastitis. She started having bilat breast pain yesterday with temp to 99 at home. Up to 102.8 in the ER. She was given IV rocephin x 1 and was admitted d/t WBC count 17.7. This morning her WBC are 10.9. She is denying vomiting. Still having breast pain. Has stopped nursing. Advised pt to express breast milk (can hand express - she does not want to pump) . She may be able to d/c today on po antibiotics. f/u in office next week unless her condition worsens. - Review of Systems Constitutional: Fever Skin: Other (bilate breast pain and erythema) All Other Systems: Reviewed and Negative Medications & Allergies Home Medications: Home Medication List Vits W-Ca,Fe,FA(<1Mg) [] 1 tab PO DAILY 07/06/18 [History Confirmed 03/26/19] Ibuprofen 600 mg PO TID PRN #35 tablet 03/06/19 [Rx Confirmed 03/26/19] Amox Tr/Potass Clav. 875 mg [Augmentin 875-125 Tablet] 875 mg PO BID #14 tablet 03/27/19 [Rx] Allergies/Adverse Reactions: Allergies Allergy/AdvReac Type Severity Reaction Status Date / Time sulfamethoxazole Allergy Severe Verified 03/26/19 20:47 [From Bactrim] trimethoprim [From Bactrim] Allergy Severe Verified 03/26/19 20:47 - Past Medical History Past Medical History: Yes Neurological History: No Pertinent History ENT History: No Pertinent History Cardiac History: No Pertinent History Respiratory History: No Pertinent History Endocrine Medical History: No Pertinent History Musculoskelatal History: No Pertinent History GI Medical History: No Pertinent History History: No Pertinent History Pyscho-Social History: No Pertinent History Reproductive Disorders: No Pertinent History Comment: lt leg abscess--summer 2015 - Female History Hx Last Menstrual Period: 05/27/2018 Are you now?: No - Past Surgical History Past Surgical History: No Neuro Surgical History: No Pertinent History Cardiac History: No Pertinent History Respiratory Surgery: No Pertinent History GI Surgical History: No Pertinent History Genitourinary Surgical Hx: No Pertinent History Musculskeletal Surgical Hx: No Pertinent History Female Surgical History: No Pertinent History - Social History Smoking Status: Current every day smoker How long have you smoked: 3 years Exposure to second hand smoke: Yes Alcohol: None Drug Use: none Significant Family History: no pertinent family hx - Physical Exam Vital Signs: Vital Signs - 24 hr Temp Pulse Resp BP Pulse Ox 03/27/19 08:00 98.5 F 75 19 104/58 95 03/27/19 04:00 100.0 F 110 H 17 109/68 98 03/27/19 00:00 100.1 F 94 H 18 102/57 94 L 03/26/19 23:49 100.1 F 94 H 18 102/57 94 L 03/26/19 22:45 94 L 03/26/19 22:20 101 H 18 128/82 98 03/26/19 22:16 98 03/26/19 21:40 102.8 F 98 H 20 124/96 98 03/26/19 20:50 99.9 F 117 H 20 129/86 98 General Appearance: mild distress, alert Neurologic Exam: oriented x 3, cooperative Eye Exam: eyes nml inspection Ears, Nose, Throat Exam: moist mucous membranes Neck Exam: normal inspection, non-tender, No lymphadenopathy Respiratory Exam: normal breath sounds, lungs clear, No crackles/rales, No rhonchi, No wheezing Cardiovascular Exam: regular rate/rhythm, normal heart sounds, No murmur Gastrointestinal/Abdomen Exam: soft, normal bowel sounds, No tenderness, No distention, No mass, No guarding, No rebound Skin Exam: other (bilat breasts with erythema extending several cm out from aureola. Milk dripping from R nipple. Quite ttp and warm.), No rash Results - Labs Lab/Micro Results: Lab Results-Last 24 Hours 03/26/19 03/26/19 03/26/19 Range/Units 21:30 21:40 21:40 WBC 17.7 H (4.0-10.5) K/mm3 RBC 4.17 (4.1-5.4) M/mm3 Hgb 13.9 (12.0-16.0) gm/dl Hct 39.2 (35-47) % MCV 94.0 (78-100) fl MCH 33.3 H (26-32) pg MCHC 35.5 (32-36) g/dl RDW 11.8 (11.5-14.0) % Plt Count 295 (150-450) K/mm3 MPV 10.6 H (6-9.5) fl Gran % 90.0 H (36.0-66.0) % Eos # (Auto) 0.18 (0-0.5) Absolute Lymphs (auto) 1.14 (1.0-4.6) Absolute Monos (auto) 0.43 (0.0-1.3) Lymphocytes % 6.4 L (24.0-44.0) % Monocytes % 2.4 (0.0-12.0) % Eosinophils % 1.0 (0.00-5.0) % Basophils % 0.2 (0.0-0.4) % Absolute Granulocytes 15.89 H (1.4-6.9) Basophils # 0.04 (0-0.4) Sodium 138 (137-145) mmol/L Potassium 4.2 (3.5-5.1) mmol/L Chloride 108 H (98-107) mmol/L Carbon Dioxide 23 (22-30) mmol/L Anion Gap 12.2 (5-15) MEQ/L BUN 11 (7-17) mg/dL Creatinine 0.63 (0.52-1.04) mg/dL Estimated GFR > 60.0 ML/MIN Glucose 85 (74-106) mg/dL Lactic Acid (0.4-2.0) Calcium 9.6 (8.4-10.2) mg/dL Total Bilirubin 0.60 (0.2-1.3) mg/dL AST 17 (14-36) U/L ALT 13 (0-35) U/L Alkaline Phosphatase 128 H (38-126) U/L Serum Total Protein 7.8 (6.3-8.2) g/dL Albumin 4.4 (3.5-5.0) g/dL Urine Color YELLOW (YELLOW) Urine Appearance SLIGHTLY CLOUDY (CLEAR) Urine pH 5.0 (5-6) Ur Specific Divide 1.010 (1.005-1.025) Urine Protein NEGATIVE (Negative) Urine Ketones NEGATIVE (NEGATIVE) Urine Blood MODERATE (0-5) Lior/ul Urine Nitrite NEGATIVE (NEGATIVE) Urine Bilirubin NEGATIVE (NEGATIVE) Urine Urobilinogen NEGATIVE (0-1) mg/dL Ur Leukocyte Esterase MODERATE (NEGATIVE) Urine WBC (Auto) 26-50 (0-5) /HPF Urine RBC (Auto) 11-15 (0-2) /HPF U Epithel Cells (Auto) MODERATE (FEW) /HPF Urine Bacteria (Auto) FEW (NEGATIVE) /HPF Urine Culture Reflexed YES (NO) Urine Glucose NEGATIVE (NEGATIVE) mg/dL 03/26/19 03/27/19 03/27/19 Range/Units 22:05 05:45 05:45 WBC 10.9 H (4.0-10.5) K/mm3 RBC 3.46 L (4.1-5.4) M/mm3 Hgb 11.4 L (12.0-16.0) gm/dl Hct 33.0 L (35-47) % MCV 95.4 (78-100) fl MCH 32.9 H (26-32) pg MCHC 34.5 (32-36) g/dl RDW 11.7 (11.5-14.0) % Plt Count 258 (150-450) K/mm3 MPV 10.6 H (6-9.5) fl Gran % 70.8 H (36.0-66.0) % Eos # (Auto) 0.36 (0-0.5) Absolute Lymphs (auto) 2.09 (1.0-4.6) Absolute Monos (auto) 0.71 (0.0-1.3) Lymphocytes % 19.2 L (24.0-44.0) % Monocytes % 6.5 (0.0-12.0) % Eosinophils % 3.3 (0.00-5.0) % Basophils % 0.2 (0.0-0.4) % Absolute Granulocytes 7.70 H (1.4-6.9) Basophils # 0.02 (0-0.4) Sodium 139 (137-145) mmol/L Potassium 3.3 L D (3.5-5.1) mmol/L Chloride 109 H (98-107) mmol/L Carbon Dioxide 25 (22-30) mmol/L Anion Gap 8.2 (5-15) MEQ/L BUN 9 (7-17) mg/dL Creatinine 0.68 (0.52-1.04) mg/dL Estimated GFR > 60.0 ML/MIN Glucose 87 (74-106) mg/dL Lactic Acid 1.0 (0.4-2.0) Calcium 8.5 (8.4-10.2) mg/dL Total Bilirubin 0.50 (0.2-1.3) mg/dL AST 14 (14-36) U/L ALT 11 (0-35) U/L Alkaline Phosphatase 89 (38-126) U/L Serum Total Protein 6.1 L (6.3-8.2) g/dL Albumin 3.4 L (3.5-5.0) g/dL Urine Color (YELLOW) Urine Appearance (CLEAR) Urine pH (5-6) Ur Specific Divide (1.005-1.025) Urine Protein (Negative) Urine Ketones (NEGATIVE) Urine Blood (0-5) Lior/ul Urine Nitrite (NEGATIVE) Urine Bilirubin (NEGATIVE) Urine Urobilinogen (0-1) mg/dL Ur Leukocyte Esterase (NEGATIVE) Urine WBC (Auto) (0-5) /HPF Urine RBC (Auto) (0-2) /HPF U Epithel Cells (Auto) (FEW) /HPF Urine Bacteria (Auto) (NEGATIVE) /HPF Urine Culture Reflexed (NO) Urine Glucose (NEGATIVE) mg/dL - Other Procedures and Tests Respiratory Therapy 03/27/19 00:14 Smoking Cessation Education ONCE Assessment/Plan (1) Mastitis Current Visit: Yes Status: Acute Assessment & Plan: received IV rocephin x 1. If she is not feeling well and opts to stay for another dose of IV rocephin, could give it at 6pm then send pt home. If she wants to go home earlier today will send on po antibiotics. Start po abx 24h after last rocephin dose. Code(s): N61.0 - MASTITIS WITHOUT ABSCESS (2) Fever Current Visit: Yes Status: Acute Qualifiers: Fever type: unspecified Qualified Code(s): R50.9 - Fever, unspecified Code(s): R50.9 - FEVER, UNSPECIFIED (3) UTI (urinary tract infection) Current Visit: Yes Status: Acute Qualifiers: Urinary tract infection type: site unspecified Hematuria presence: without hematuria Qualified Code(s): N39.0 - Urinary tract infection, site not specified Assessment & Plan: will treat for this as well; UCx pending. Code(s): N39.0 - URINARY TRACT INFECTION, SITE NOT SPECIFIED Hospital Summary - Hospital Course Hospital Course: is a 18 year old female pt of mine from [facility], [facility] ([place] approx 3 weeks post , who was admitted through ER with mastitis. She started having bilat breast pain yesterday with temp to 99 at home. Up to 102.8 in the ER. She was given IV rocephin x 1 and was admitted d/t WBC count 17.7. This morning her WBC are 10.9. She is denying vomiting. Still having breast pain. Has stopped nursing. Advised pt to express breast milk (can hand express - she does not want to pump) . She may be able to d/c today on po antibiotics. f/u in office next week unless her condition worsens. - Vitals & Intake/Output Vital Signs: Vital Signs Temperature 98.5 F 03/27/19 08:00 Pulse Rate 75 03/27/19 08:00 Respiratory Rate 19 03/27/19 08:00 Blood Pressure 104/58 03/27/19 08:00 O2 Sat by Pulse Oximetry 95 03/27/19 08:00 Intake & Output: Intake & Output 03/24/19 03/25/19 03/26/19 03/27/19 11:59 11:59 11:59 11:59 Intake Total 886 Output Total 600 Balance 286 Weight 69.8 kg - Lab Result Diagrams: 03/27/19 05:45 03/27/19 05:45 Lab Results-Last 24 Hrs: Lab Results-Last 24 Hours 03/26/19 03/26/19 03/26/19 Range/Units 21:30 21:40 21:40 WBC 17.7 H (4.0-10.5) K/mm3 RBC 4.17 (4.1-5.4) M/mm3 Hgb 13.9 (12.0-16.0) gm/dl Hct 39.2 (35-47) % MCV 94.0 (78-100) fl MCH 33.3 H (26-32) pg MCHC 35.5 (32-36) g/dl RDW 11.8 (11.5-14.0) % Plt Count 295 (150-450) K/mm3 MPV 10.6 H (6-9.5) fl Gran % 90.0 H (36.0-66.0) % Eos # (Auto) 0.18 (0-0.5) Absolute Lymphs (auto) 1.14 (1.0-4.6) Absolute Monos (auto) 0.43 (0.0-1.3) Lymphocytes % 6.4 L (24.0-44.0) % Monocytes % 2.4 (0.0-12.0) % Eosinophils % 1.0 (0.00-5.0) % Basophils % 0.2 (0.0-0.4) % Absolute Granulocytes 15.89 H (1.4-6.9) Basophils # 0.04 (0-0.4) Sodium 138 (137-145) mmol/L Potassium 4.2 (3.5-5.1) mmol/L Chloride 108 H (98-107) mmol/L Carbon Dioxide 23 (22-30) mmol/L Anion Gap 12.2 (5-15) MEQ/L BUN 11 (7-17) mg/dL Creatinine 0.63 (0.52-1.04) mg/dL Estimated GFR > 60.0 ML/MIN Glucose 85 (74-106) mg/dL Lactic Acid (0.4-2.0) Calcium 9.6 (8.4-10.2) mg/dL Total Bilirubin 0.60 (0.2-1.3) mg/dL AST 17 (14-36) U/L ALT 13 (0-35) U/L Alkaline Phosphatase 128 H (38-126) U/L Serum Total Protein 7.8 (6.3-8.2) g/dL Albumin 4.4 (3.5-5.0) g/dL Urine Color YELLOW (YELLOW) Urine Appearance SLIGHTLY CLOUDY (CLEAR) Urine pH 5.0 (5-6) Ur Specific Divide 1.010 (1.005-1.025) Urine Protein NEGATIVE (Negative) Urine Ketones NEGATIVE (NEGATIVE) Urine Blood MODERATE (0-5) Lior/ul Urine Nitrite NEGATIVE (NEGATIVE) Urine Bilirubin NEGATIVE (NEGATIVE) Urine Urobilinogen NEGATIVE (0-1) mg/dL Ur Leukocyte Esterase MODERATE (NEGATIVE) Urine WBC (Auto) 26-50 (0-5) /HPF Urine RBC (Auto) 11-15 (0-2) /HPF U Epithel Cells (Auto) MODERATE (FEW) /HPF Urine Bacteria (Auto) FEW (NEGATIVE) /HPF Urine Culture Reflexed YES (NO) Urine Glucose NEGATIVE (NEGATIVE) mg/dL 03/26/19 03/27/19 03/27/19 Range/Units 22:05 05:45 05:45 WBC 10.9 H (4.0-10.5) K/mm3 RBC 3.46 L (4.1-5.4) M/mm3 Hgb 11.4 L (12.0-16.0) gm/dl Hct 33.0 L (35-47) % MCV 95.4 (78-100) fl MCH 32.9 H (26-32) pg MCHC 34.5 (32-36) g/dl RDW 11.7 (11.5-14.0) % Plt Count 258 (150-450) K/mm3 MPV 10.6 H (6-9.5) fl Gran % 70.8 H (36.0-66.0) % Eos # (Auto) 0.36 (0-0.5) Absolute Lymphs (auto) 2.09 (1.0-4.6) Absolute Monos (auto) 0.71 (0.0-1.3) Lymphocytes % 19.2 L (24.0-44.0) % Monocytes % 6.5 (0.0-12.0) % Eosinophils % 3.3 (0.00-5.0) % Basophils % 0.2 (0.0-0.4) % Absolute Granulocytes 7.70 H (1.4-6.9) Basophils # 0.02 (0-0.4) Sodium 139 (137-145) mmol/L Potassium 3.3 L D (3.5-5.1) mmol/L Chloride 109 H (98-107) mmol/L Carbon Dioxide 25 (22-30) mmol/L Anion Gap 8.2 (5-15) MEQ/L BUN 9 (7-17) mg/dL Creatinine 0.68 (0.52-1.04) mg/dL Estimated GFR > 60.0 ML/MIN Glucose 87 (74-106) mg/dL Lactic Acid 1.0 (0.4-2.0) Calcium 8.5 (8.4-10.2) mg/dL Total Bilirubin 0.50 (0.2-1.3) mg/dL AST 14 (14-36) U/L ALT 11 (0-35) U/L Alkaline Phosphatase 89 (38-126) U/L Serum Total Protein 6.1 L (6.3-8.2) g/dL Albumin 3.4 L (3.5-5.0) g/dL Urine Color (YELLOW) Urine Appearance (CLEAR) Urine pH (5-6) Ur Specific Divide (1.005-1.025) Urine Protein (Negative) Urine Ketones (NEGATIVE) Urine Blood (0-5) Lior/ul Urine Nitrite (NEGATIVE) Urine Bilirubin (NEGATIVE) Urine Urobilinogen (0-1) mg/dL Ur Leukocyte Esterase (NEGATIVE) Urine WBC (Auto) (0-5) /HPF Urine RBC (Auto) (0-2) /HPF U Epithel Cells (Auto) (FEW) /HPF Urine Bacteria (Auto) (NEGATIVE) /HPF Urine Culture Reflexed (NO) Urine Glucose (NEGATIVE) mg/dL - Procedures and Test Procedures and Tests throughout Hospitalization: Therapy Orders & Screens 03/27/19 00:14 Smoking Cessation Education ONCE Comment: Diagnosis: Mastitis, Fever, UTI Smoking Status: Current every day smoker How long have you smoked: 3 years Have you smoked in the past 12 months: Yes Approximately how many cigarettes per day: 5-6 Do you dip or chew tobacco: No - Discharge Disposition: Home, Self-Care Condition: Good Prescriptions: New Amox Tr/Potass Clav. 875 mg [Augmentin 875-125 Tablet] 875 mg PO BID # 14 tablet Continue Vits W-Ca,Fe,FA(<1Mg) [] 1 tab PO DAILY Ibuprofen 600 mg PO TID PRN #35 tablet PRN Reason: Pain Follow up with: CAMILA BURGER [Primary Care Provider] - 1 Week
[2019-03-27] MEDS ORDERED: NORCO 5/325 MG PO PRN (09:19)
[2019-03-27 13:37] VITALS: BP 105/57; PULSE 87
[2019-03-27] MEDS ORDERED: ROCEPHIN 1 Gm-D5w 50 ml Bag** 1 G/50 ML IVPB IV SCH (22:00)
== END 2019-03-27 12:50 | disposition home or self-care (01) ==
LOC: ED 19:49 → MED SURG 22:40
PROVIDERS: ADMIT Family Medicine; ATTEND Family Medicine
DX: O91.22 Nonpurulent mastitis associated with the puerperium (principal); O86.20 Urinary tract infection following delivery, unspecified; O86.4 Pyrexia of unknown origin following delivery
CPT/HCPCS: 36000; 36415; 80053; 81001; 83605; 85025; 87040; 87070; 87077; 87086; 93268; 96360; 96365; 99285; G0378; 87186; J0696; A9270-GY

== ENCOUNTER 2019-04-02 00:09 | Emergency (ER) | payer OTHER ==
[2019-04-02] MEDS ORDERED: SUBLIMAZE 100 MCG/2 ML IV ONE ×2 (00:30→05:13)
[2019-04-02] MEDS ORDERED: Zofran 4 MG/2 ML VIAL IV ONE (00:30)
[2019-04-02] MEDS ORDERED: Sodium Chloride 0.9% 1000 ML 1,000 ML IV STA (00:30)
[2019-04-02] MEDS ORDERED: Pepcid 20 MG VIAL IV ONE ×2 (00:30→00:34)
[2019-04-02] MEDS ORDERED: Zofran 4 MG/2 ML VIAL ONE (00:34)
[2019-04-02] MEDS ORDERED: Sodium Chloride 0.9% 1000 ML 1,000 ML ONE ×2 (00:35→03:41)
[2019-04-02] MEDS ORDERED: SUBLIMAZE 100 MCG/2 ML ONE ×2 (00:35→05:17)
--- NOTE | 2019-04-02 00:41 | ERPHSYRPT ---
- History of Present Illness Time Seen by Provider: 04/02/19 00:35 Historian: patient Exam Limitations: no limitations Patient Subjective Stated Complaint: pt arrived per family car with SOB, c/o severe abd pain 10/10, mid abd and radiating into her back causing SOB. pt yelling in pain, vomiting, obvious distress. taking an ATB for mastitis since last week, hospitalized for mastitis. Triage Nursing Assessment: pt arrived per family car, brought in by w/c, vomited in parking lot. c/o severe abd pain radiating into her back. vomited undigested food. pt holding/guarding upper abd area. states had diarrhea X 1 today. appetite normal today. pain started about 30 minutes ago. Physician History: Pt underwent spont. vaginal delivery 4 weeks ago. She has been treated for Mastitis currently on PO antibiotics, ( possibly Keflex), developed sudden epigastric pain, nausea, and freqent vomiting about one hour ago. She states her epigastric pain has been radiating to her lower chest, she denies fever, diarrhea, chest pain, other complaints. She denies breast feeding. Timing/Duration: hour(s) (1), worse Activities at Onset: none Quality: cramping, sharpness Abdominal Pain Onset Location: epigastric Pain Radiation: chest Severity of Pain-Max: severe Severity of Pain-Current: severe Modifying Factors: Improves With: nothing Associated Symptoms: nausea, shortness of breath, vomiting, No diaphoresis, No diarrhea, No fever/chills, No rash Previous symptoms: no prior history Allergies/Adverse Reactions: sulfamethoxazole [From Bactrim] Allergy (Severe, Verified 03/26/19 20:47) hives and trouble breathing trimethoprim [From Bactrim] Allergy (Severe, Verified 03/26/19 20:47) hives and trouble breathing Hx Tetanus, Diphtheria Vaccination/Date Given: Yes Hx Influenza Vaccination/Date Given: Yes Hx Pneumococcal Vaccination/Date Given: No Immunizations Up to Date: Yes - Review of Systems Constitutional: No Symptoms Ears, Nose, & Throat: No Symptoms Respiratory: Dyspnea Cardiac: No Symptoms Abdominal/Gastrointestinal: Abdominal Pain, Nausea, Vomiting Genitourinary Symptoms: No Symptoms Musculoskeletal: No Symptoms Skin: No Symptoms Neurological: No Symptoms Psychological: No Symptoms All Other Systems: Reviewed and Negative - Past Medical History Pertinent Past Medical History: Yes Neurological History: No Pertinent History ENT History: No Pertinent History Cardiac History: No Pertinent History Respiratory History: No Pertinent History Endocrine Medical History: No Pertinent History Musculoskeletal History: No Pertinent History GI Medical History: No Pertinent History History: No Pertinent History Psycho-Social History: No Pertinent History Female Reproductive Disorders: No Pertinent History Other Medical History: lt leg abscess--summer 2015,. treated for mastitis last week March 2019 - Past Surgical History Past Surgical History: No Neuro Surgical History: No Pertinent History Cardiac: No Pertinent History Respiratory: No Pertinent History Gastrointestinal: No Pertinent History Genitourinary: No Pertinent History Musculoskeletal: No Pertinent History Female Surgical History: No Pertinent History - Social History Smoking Status: Current every day smoker How long have you smoked: 3 years Exposure to second hand smoke: Yes Alcohol Use: None Drug Use: none Patient Lives Alone: No Significant Family History: no pertinent family hx - Female History Hx Last Menstrual Period: May Hx Now: No - Nursing Vital Signs Nursing Vital Signs: Initial Vital Signs Temperature 98.0 F 04/02/19 00:10 Pulse Rate 72 04/02/19 00:10 Respiratory Rate 32 H 04/02/19 00:10 Blood Pressure 152/76 04/02/19 00:10 Pain Scale Pain Intensity 4 - Physical Exam General Appearance: mild distress Eye Exam: eyes nml inspection Ears, Nose, Throat Exam: normal ENT inspection, pharynx normal, moist mucous membranes Neck Exam: normal inspection, non-tender, supple, No mass, No carotid bruit, No JVD Respiratory Exam: normal breath sounds, lungs clear, airway intact, No chest tenderness, No respiratory distress Cardiovascular Exam: regular rate/rhythm, normal heart sounds, normal peripheral pulses, No murmur Gastrointestinal/Abdomen Exam: soft, normal bowel sounds, tenderness (mod. severe epigastric and RUQ) Back Exam: normal inspection, No CVA tenderness Extremity Exam: normal inspection, No calf tenderness, No milagros's sign, No pedal edema Neurologic Exam: alert, oriented x 3, cooperative, normal mood/affect Skin Exam: normal color, warm, dry, No rash, No diaphoresis Lymphatic Exam: No adenopathy SpO2 Interpretation: normal O2 Delivery: Room Air - Course Nursing assessment & vital signs reviewed: Yes EKG Interpreted by Me: RATE (58/min), Sinus [place]ito, Left [place] Deviation, NORMAL INTERVALS, NORMAL QRS, Non-specific ST Changes - Radiology Exams Chest X-ray Interpretation: Interpreted by me, Negative - CT Exams Chest CT Interpretation: Negative, Tele-radiologist Report Abdomen/Pelvis CT Interpretation: Tele-radiologist Report, Other (possible gallbladder sludge or tiny gallstones.) Ordered Tests: Active Orders 24 hr Category Date Time Status EKG-ER Only STAT Care 04/02/19 00:30 Active IV Insertion STAT Care 04/02/19 00:30 Active ABDOMEN AND PELVIS W CONTRAST [CT] Stat Exams 04/02/19 01:18 Taken CHEST 1 VIEW (PORTABLE) Stat Exams 04/02/19 00:31 Taken CHEST WITH CONTRAST [CT] Stat Exams 04/02/19 01:17 Taken AMYLASE Stat Lab 04/02/19 00:57 Completed CBC W DIFF Stat Lab 04/02/19 00:30 Completed CMP Stat Lab 04/02/19 00:57 Completed D-DIMER QUANTITATION Stat Lab 04/02/19 00:57 Completed HCG QUALITATIVE,SERUM Stat Lab 04/02/19 00:57 Completed LIPASE Stat Lab 04/02/19 00:57 Completed MAGNESIUM Stat Lab 04/02/19 00:57 Completed NT PRO BNP Stat Lab 04/02/19 00:57 Completed PROTIME WITH INR Stat Lab 04/02/19 00:57 Completed PTT Stat Lab 04/02/19 00:57 Completed TROPONIN Q3H Lab 04/02/19 00:57 Completed TROPONIN Q3H Lab 04/02/19 04:06 Completed TROPONIN Q3H Lab 04/02/19 06:30 Completed TROPONIN Q3H Lab 04/02/19 09:30 Ordered TROPONIN Q3H Lab 04/02/19 12:30 Ordered UA W/RFX UR CULTURE Stat Lab 04/02/19 02:01 Completed Urine Triage Profile Stat Lab 04/02/19 02:01 Completed Medication Summary Discontinued Medications Generic Name Dose Route Start Last Admin Trade Name Freq PRN Reason Stop Dose Admin Al Hydrox/Mg Hydrox/Simethicone Confirm 04/02/19 01:44 Maalox Es 30 Ml Unit Dose Administered 04/02/19 01:45 Dose 30 ml .ROUTE .STK-MED ONE Famotidine 20 mg 04/02/19 00:30 04/02/19 00:42 Pepcid 20 Mg Vial IV 04/02/19 00:31 20 mg STAT ONE Administration Famotidine Confirm 04/02/19 00:34 Pepcid 20 Mg Vial Administered 04/02/19 00:35 Dose 20 mg IV .STK-MED ONE Fentanyl Citrate 50 mcg 04/02/19 00:30 04/02/19 00:41 Sublimaze 100 Mcg/2 Ml IV 04/02/19 00:31 50 mcg STAT ONE Administration Fentanyl Citrate Confirm 04/02/19 00:35 Sublimaze 100 Mcg/2 Ml Administered 04/02/19 00:36 Dose 100 mcg .ROUTE .STK-MED ONE Fentanyl Citrate 50 mcg 04/02/19 05:13 04/02/19 05:21 Sublimaze 100 Mcg/2 Ml IV 04/02/19 05:14 50 mcg STAT ONE Administration Fentanyl Citrate Confirm 04/02/19 05:17 Sublimaze 100 Mcg/2 Ml Administered 04/02/19 05:18 Dose 100 mcg .ROUTE .STK-MED ONE Sodium Chloride 1,000 mls @ 999 mls/hr 04/02/19 00:30 04/02/19 01:50 Sodium Chloride 0.9% 1000 Ml IV 04/02/19 01:30 Infused .Q1H1M STA Infusion Sodium Chloride Confirm 04/02/19 00:35 Sodium Chloride 0.9% 1000 Ml Administered 04/02/19 00:36 Dose 1,000 mls @ ud .ROUTE .STK-MED ONE Sodium Chloride Confirm 04/02/19 03:41 Sodium Chloride 0.9% 1000 Ml Administered 04/02/19 03:42 Dose 1,000 mls @ ud .ROUTE .STK-MED ONE Lidocaine HCl Confirm 04/02/19 01:44 Xylocaine Hcl Viscous * Administered 04/02/19 01:45 Dose 15 ml .ROUTE .STK-MED ONE Magnesium Hydroxide 45 ml 04/02/19 01:18 04/02/19 01:47 Gi Cocktail 45 Ml (Maalox/Lidocaine) PO 04/02/19 01:19 45 ml STAT ONE Administration Ondansetron HCl 4 mg 04/02/19 00:30 04/02/19 00:42 Zofran 4 Mg/2 Ml Vial IV 04/02/19 00:31 4 mg STAT ONE Administration Ondansetron HCl Confirm 04/02/19 00:34 Zofran 4 Mg/2 Ml Vial Administered 04/02/19 00:35 Dose 4 mg .ROUTE .STK-MED ONE Lab/Rad Data: Laboratory Result Diagrams 04/02/19 00:30 04/02/19 00:57 Laboratory Results 04/02/19 04/02/19 04/02/19 Range/Units 06:30 04:06 02:01 WBC (4.0-10.5) K/mm3 RBC (4.1-5.4) M/mm3 Hgb (12.0-16.0) gm/dl Hct (35-47) % MCV (78-100) fl MCH (26-32) pg MCHC (32-36) g/dl RDW (11.5-14.0) % Plt Count (150-450) K/mm3 MPV (6-9.5) fl Gran % (36.0-66.0) % Eos # (Auto) (0-0.5) Absolute Lymphs (auto) (1.0-4.6) Absolute Monos (auto) (0.0-1.3) Lymphocytes % (24.0-44.0) % Monocytes % (0.0-12.0) % Eosinophils % (0.00-5.0) % Basophils % (0.0-0.4) % Absolute Granulocytes (1.4-6.9) Basophils # (0-0.4) PT (9.95-12.35) SECONDS INR (0.8-3.0) APTT (25.3-37.0) SECONDS D-Dimer (215-500) ng/mL Sodium (137-145) mmol/L Potassium (3.5-5.1) mmol/L Chloride (98-107) mmol/L Carbon Dioxide (22-30) mmol/L Anion Gap (5-15) MEQ/L BUN (7-17) mg/dL Creatinine (0.52-1.04) mg/dL Estimated GFR ML/MIN Glucose (74-106) mg/dL Calcium (8.4-10.2) mg/dL Magnesium (1.6-2.3) mg/dL Total Bilirubin (0.2-1.3) mg/dL AST (14-36) U/L ALT (0-35) U/L Alkaline Phosphatase (38-126) U/L Troponin I < 0.012 < 0.012 (0.000-0.034) ng/mL NT-Pro-B Natriuret Pep (0-450) pg/mL Serum Total Protein (6.3-8.2) g/dL Albumin (3.5-5.0) g/dL Amylase (30-110) U/L Lipase (23-300) U/L Serum , Qual (Negative) Urine Color (YELLOW) Urine Appearance (CLEAR) Urine pH (5-6) Ur Specific [place] (1.005-1.025) Urine Protein (Negative) Urine Ketones (NEGATIVE) Urine Blood (0-5) Lior/ul Urine Nitrite (NEGATIVE) Urine Bilirubin (NEGATIVE) Urine Urobilinogen (0-1) mg/dL Ur Leukocyte Esterase (NEGATIVE) Urine WBC (Auto) (0-5) /HPF Urine RBC (Auto) (0-2) /HPF U Epithel Cells (Auto) (FEW) /HPF Urine Bacteria (Auto) (NEGATIVE) /HPF Urine Mucus (Auto) (NEGATIVE) /HPF Urine Culture Reflexed (NO) Urine Glucose (NEGATIVE) mg/dL Urine Opiates Level NEGATIVE (NEGATIVE) Ur Methadone NEGATIVE (NEGATIVE) Urine Barbiturates NEGATIVE (NEGATIVE) Ur Phencyclidine (PCP) NEGATIVE (NEGATIVE) Urine Amphetamine NEGATIVE (NEGATIVE) U Benzodiazepine Level NEGATIVE (NEGATIVE) Urine Cocaine NEGATIVE (NEGATIVE) Urine Marijuana (THC) NEGATIVE (NEGATIVE) Slides for Path Review 04/02/19 04/02/19 04/02/19 Range/Units 02:01 00:57 00:57 WBC (4.0-10.5) K/mm3 RBC (4.1-5.4) M/mm3 Hgb (12.0-16.0) gm/dl Hct (35-47) % MCV (78-100) fl MCH (26-32) pg MCHC (32-36) g/dl RDW (11.5-14.0) % Plt Count (150-450) K/mm3 MPV (6-9.5) fl Gran % (36.0-66.0) % Eos # (Auto) (0-0.5) Absolute Lymphs (auto) (1.0-4.6) Absolute Monos (auto) (0.0-1.3) Lymphocytes % (24.0-44.0) % Monocytes % (0.0-12.0) % Eosinophils % (0.00-5.0) % Basophils % (0.0-0.4) % Absolute Granulocytes (1.4-6.9) Basophils # (0-0.4) PT (9.95-12.35) SECONDS INR (0.8-3.0) APTT (25.3-37.0) SECONDS D-Dimer (215-500) ng/mL Sodium 142 (137-145) mmol/L Potassium 3.4 L (3.5-5.1) mmol/L Chloride 106 (98-107) mmol/L Carbon Dioxide 24 (22-30) mmol/L Anion Gap 15.3 H (5-15) MEQ/L BUN 11 (7-17) mg/dL Creatinine 0.68 (0.52-1.04) mg/dL Estimated GFR > 60.0 ML/MIN Glucose 106 (74-106) mg/dL Calcium 9.9 (8.4-10.2) mg/dL Magnesium 2.0 (1.6-2.3) mg/dL Total Bilirubin 0.30 (0.2-1.3) mg/dL AST 21 (14-36) U/L ALT 16 (0-35) U/L Alkaline Phosphatase 113 (38-126) U/L Troponin I (0.000-0.034) ng/mL NT-Pro-B Natriuret Pep 173 (0-450) pg/mL Serum Total Protein 7.6 (6.3-8.2) g/dL Albumin 4.4 (3.5-5.0) g/dL Amylase 74 (30-110) U/L Lipase 166 (23-300) U/L Serum , Qual NEGATIVE (Negative) Urine Color YELLOW (YELLOW) Urine Appearance CLEAR (CLEAR) Urine pH 6.0 (5-6) Ur Specific [place] 1.013 (1.005-1.025) Urine Protein NEGATIVE (Negative) Urine Ketones NEGATIVE (NEGATIVE) Urine Blood NEGATIVE (0-5) Lior/ul Urine Nitrite NEGATIVE (NEGATIVE) Urine Bilirubin NEGATIVE (NEGATIVE) Urine Urobilinogen NEGATIVE (0-1) mg/dL Ur Leukocyte Esterase NEGATIVE (NEGATIVE) Urine WBC (Auto) 0-2 (0-5) /HPF Urine RBC (Auto) 3-5 (0-2) /HPF U Epithel Cells (Auto) NONE (FEW) /HPF Urine Bacteria (Auto) NONE (NEGATIVE) /HPF Urine Mucus (Auto) SLIGHT (NEGATIVE) /HPF Urine Culture Reflexed NO (NO) Urine Glucose NEGATIVE (NEGATIVE) mg/dL Urine Opiates Level (NEGATIVE) Ur Methadone (NEGATIVE) Urine Barbiturates (NEGATIVE) Ur Phencyclidine (PCP) (NEGATIVE) Urine Amphetamine (NEGATIVE) U Benzodiazepine Level (NEGATIVE) Urine Cocaine (NEGATIVE) Urine Marijuana (THC) (NEGATIVE) Slides for Path Review 04/02/19 04/02/19 04/02/19 Range/Units 00:57 00:57 00:30 WBC 11.3 H (4.0-10.5) K/mm3 RBC 4.32 (4.1-5.4) M/mm3 Hgb 13.9 (12.0-16.0) gm/dl Hct 40.3 (35-47) % MCV 93.3 (78-100) fl MCH 32.2 H (26-32) pg MCHC 34.5 (32-36) g/dl RDW 11.5 (11.5-14.0) % Plt Count 399 (150-450) K/mm3 MPV 10.6 H (6-9.5) fl Gran % 32.1 L (36.0-66.0) % Eos # (Auto) 0.95 H (0-0.5) Absolute Lymphs (auto) 6.01 H (1.0-4.6) Absolute Monos (auto) 0.67 (0.0-1.3) Lymphocytes % 53.0 H (24.0-44.0) % Monocytes % 5.9 (0.0-12.0) % Eosinophils % 8.4 H (0.00-5.0) % Basophils % 0.6 (0.0-0.4) % Absolute Granulocytes 3.63 (1.4-6.9) Basophils # 0.07 (0-0.4) PT 10.8 (9.95-12.35) SECONDS INR 0.96 (0.8-3.0) APTT 31.0 (25.3-37.0) SECONDS D-Dimer 682 H* (215-500) ng/mL Sodium (137-145) mmol/L Potassium (3.5-5.1) mmol/L Chloride (98-107) mmol/L Carbon Dioxide (22-30) mmol/L Anion Gap (5-15) MEQ/L BUN (7-17) mg/dL Creatinine (0.52-1.04) mg/dL Estimated GFR ML/MIN Glucose (74-106) mg/dL Calcium (8.4-10.2) mg/dL Magnesium (1.6-2.3) mg/dL Total Bilirubin (0.2-1.3) mg/dL AST (14-36) U/L ALT (0-35) U/L Alkaline Phosphatase (38-126) U/L Troponin I < 0.012 (0.000-0.034) ng/mL NT-Pro-B Natriuret Pep (0-450) pg/mL Serum Total Protein (6.3-8.2) g/dL Albumin (3.5-5.0) g/dL Amylase (30-110) U/L Lipase (23-300) U/L Serum , Qual (Negative) Urine Color (YELLOW) Urine Appearance (CLEAR) Urine pH (5-6) Ur Specific [place] (1.005-1.025) Urine Protein (Negative) Urine Ketones (NEGATIVE) Urine Blood (0-5) Lior/ul Urine Nitrite (NEGATIVE) Urine Bilirubin (NEGATIVE) Urine Urobilinogen (0-1) mg/dL Ur Leukocyte Esterase (NEGATIVE) Urine WBC (Auto) (0-5) /HPF Urine RBC (Auto) (0-2) /HPF U Epithel Cells (Auto) (FEW) /HPF Urine Bacteria (Auto) (NEGATIVE) /HPF Urine Mucus (Auto) (NEGATIVE) /HPF Urine Culture Reflexed (NO) Urine Glucose (NEGATIVE) mg/dL Urine Opiates Level (NEGATIVE) Ur Methadone (NEGATIVE) Urine Barbiturates (NEGATIVE) Ur Phencyclidine (PCP) (NEGATIVE) Urine Amphetamine (NEGATIVE) U Benzodiazepine Level (NEGATIVE) Urine Cocaine (NEGATIVE) Urine Marijuana (THC) (NEGATIVE) Slides for Path Review YES - Progress Progress: improved Progress Note: 04/02/19 07:04 Pt improved, no fever, severe pain or vomiting, reviewed her CT reports and labs , discussed with her, she is being discharged in stable condition to rest, diet , drink plenty of fluids, and follow up with her physician this week. Counseled pt/family regarding: lab results, diagnosis, need for follow-up, rad results - Departure Departure Disposition: Home Clinical Impression: Biliary colic symptom, Gallstones Condition: Stable Critical Care Time: No Referrals: CAMILA BURGER [Primary Care Provider] - Instructions: Gallstones (DC) Additional Instructions: Rest x 2-3 days, drink plenty of fluids, and diet, follow up with your physician or surgeon this week, return if severe pain, vomiting, fever> 101 F! Prescriptions: Ondansetron ODT 4 MG [Zofran Odt 4 mg] 4 mg PO Q6H PRN PRN #10 tab.rapdis PRN Reason: Nausea/Vomiting Phenobarb/Hyoscy/Atropine/Scop [ Tablet] 16.2 mg PO Q6H PRN #15 tablet PRN Reason: Pain
[2019-04-02 00:50] LABS: BASOPHIL % 0.6 % (0.0-0.4); Basophil (Absolute #) 0.07 (0-0.4); Eosinophil % 8.4 % (0.00-5.0); Eosinophil (Absolute #) 0.95 (0-0.5); Granulocyte Absolute (ANC) 3.63 (1.4-6.9); Granulocytes % 32.1 % (36.0-66.0); Hematocrit 40.3 % (35-47); Hemoglobin 13.9 gm/dl (12.0-16.0); Lymphocyte (Absolute #) 6.01 (1.0-4.6); Mean Cell Volume 93.3 fl (78-100); Mean Corpuscular Hemoglobin 32.2 pg (26-32); Mean Corpuscular Hgb Concent. 34.5 g/dl (32-36); Mean Platelet Volume 10.6 fl (6-9.5); Monocyte (Absolute #) 0.67 (0.0-1.3); Monocytes % 5.9 % (0.0-12.0); Platelet Count 399 K/mm3 (150-450); Red Blood Count 4.32 M/mm3 (4.1-5.4); Red Cell Distribution Width 11.5 % (11.5-14.0); White Blood Count 11.3 K/mm3 (4.0-10.5)
[2019-04-02 00:58] LABS: INR 0.96 (0.8-3.0); PROTIME 10.8 SECONDS (9.95-12.35)
[2019-04-02 01:12] LABS: ALBUMIN 4.4 g/dL (3.5-5.0); ALKALINE PHOSPHATASE 113 U/L (38-126); AMYLASE 74 U/L (30-110); ANION GAP 15.3 MEQ/L (5-15); BLOOD UREA NITROGEN 11 mg/dL (7-17); CHLORIDE 106 mmol/L (98-107); Calcium 9.9 mg/dL (8.4-10.2); Carbon Dioxide 24 mmol/L (22-30); Creatinine 1 0.68 mg/dL (0.52-1.04); Glucose 106 mg/dL (74-106); LIPASE 166 U/L (23-300); NT PRO BNP 173 pg/mL (0-450); Potassium 3.4 mmol/L (3.5-5.1); SGOT/AST 21 U/L (14-36); SGPT/ALT 16 U/L (0-35); SODIUM 142 mmol/L (137-145); Total Protein 7.6 g/dL (6.3-8.2)
[2019-04-02] MEDS ORDERED: GI COCKTAIL 45 ML (Maalox/Lidocaine) PO ONE (01:18)
[2019-04-02] MEDS ORDERED: MAALOX ES 30 ML UNIT DOSE ONE (01:44)
[2019-04-02] MEDS ORDERED: XYLOCAINE HCl Viscous ONE (01:44)
[2019-04-02 02:08] LABS: Appearance CLEAR (CLEAR); Bilirubin NEGATIVE (NEGATIVE); Blood NEGATIVE Ery/ul (0-5); Glucose NEGATIVE (NEGATIVE); Ketones NEGATIVE (NEGATIVE); Leukocyte Esterase NEGATIVE (NEGATIVE); Mucus SLIGHT /HPF (NEGATIVE); Nitrite NEGATIVE (NEGATIVE); Protein,Urine Dip NEGATIVE (Negative); Specific Gravity 1.013 (1.005-1.025); Urobilinogen NEGATIVE mg/dL (0-1); WBC 0-2 /HPF (0-5)
[2019-04-02 02:17] LABS: Amphetamine,Urine NEGATIVE (NEGATIVE); Barbiturate,Urine NEGATIVE (NEGATIVE); Benzodiazepine,Urine NEGATIVE (NEGATIVE); Cocaine,Urine NEGATIVE (NEGATIVE); Methadone,Urine NEGATIVE (NEGATIVE); Opiate,Urine NEGATIVE (NEGATIVE); PCP,Urine NEGATIVE (NEGATIVE); THC,Urine NEGATIVE (NEGATIVE)
[2019-04-02 04:25] LABS: Slide Review 1 YES
[2019-04-02 06:00] VITALS: O2SAT 97
[2019-04-02 07:12] VITALS: BP 130/82; PULSE 78
--- NOTE | 2019-04-02 12:20 | XRAY ---
Exam: AP upright portable chest film from 04/02/2019. Comparison: Two-view chest film series from 02/02/2010. Indication: 18-year-old female with epigastric abdominal pain, emesis. Findings: The heart size and contour are normal. The bere and mediastinal structures appear unremarkable. The lungs are adequately expanded. No air space infiltrates, vascular congestion, pneumothorax, or pleural fluid is seen. No other lung parenchymal abnormality is seen. The bones appear grossly intact. Impression: 1. No acute cardiopulmonary disease is seen. There has been significant interval growth of the patient since 02/02/2010.
--- NOTE | 2019-04-02 14:06 | XRAY ---
Exam: CT of the chest with IV contrast per PE protocol from 04/02/2019. CTDI: 13.27 Comparison: AP upright portable chest film from 04/02/2019. Indication: 18-year-old female with epigastric abdominal pain, elevated white blood cell count, elevated d-dimer, lower chest pain, one week , shortness of breath, severe abdominal pain radiating to back, emesis. Technique: Post-IV contrast axial images were obtained through the chest using the PE protocol employing 80 ML's of Isovue 370 nonionic IV contrast material. Reconstructed coronal and sagittal images were created and reviewed. Findings: The pulmonary arteries enhance well revealing no filling defects to suggest clot/emboli. I note a small amount of nondependent air within the proximal portion of the pulmonary artery trunk on axial images #88 through #92. I see no evidence of thoracic aortic aneurysm or dissection. A bovine aortic arch is seen on coronal image #18. This represents a normal variant. , Umbilical The heart appears of unremarkable size and reveals no pericardial effusion. No abnormal lymphadenopathy is seen within the mediastinum or bere. The axilla appear unremarkable. Prominent parenchymal breast tissue is seen in this patient who is 1 week post-vaginal delivery of a . The lungs reveal no infiltrates, abnormal soft tissue lung nodularity, pneumothorax, or pleural fluid. The bones reveal no fracture or other aggressive bone lesion. Impression: 1. I see no evidence of pulmonary embolism. Nor do I see evidence of thoracic aortic dissection or aneurysm. 2. No other acute cardiopulmonary process is seen
--- NOTE | 2019-04-02 14:58 | XRAY ---
Exam: CT of the abdomen and pelvis with IV contrast from 04/02/2019. Comparison: CT of the abdomen and pelvis without IV contrast from 02/02/2010. Indication: 18-year-old female with severe abdominal pain radiating to her back, vomiting, had a vaginal delivery of a one week ago, elevated white blood count of 11,300. Technique: Post-IV contrast axial images were obtained through the abdomen and pelvis during automated injection of 80 cc of Isovue-370 IV contrast material. Reconstructed coronal and sagittal images were created and reviewed. Findings: The visualized lung bases appear clear. The liver and spleen appear of unremarkable size and uniform attenuation. The gallbladder appears mildly dilated measuring up to 4.3 cm in width. I cannot exclude minimal soft tissue density within the posterior dependent portion of the upper aspect of the gallbladder lumen. This could be due to biliary sludge or tiny stones that are not densely calcified. I cannot exclude a small amount of pericholecystic fluid at the upper anterior right lateral margin of the gallbladder. Further evaluation with a gallbladder ultrasound may be helpful. The pancreas and adrenal glands appear unremarkable. Both kidneys function and reveal no mass or hydronephrosis. No definite renal calculi are seen. The kidneys function suggesting that these images were obtained with some delay. The abdominal aorta appears of normal diameter. No abnormal retroperitoneal lymphadenopathy is seen. There is no free intraperitoneal air. Anterior abdominal wall appears intact. Moderate colonic stool retention is seen without evidence of bowel distention or bowel wall thickening. I see no definite findings to suggest appendicitis within the right lower quadrant. The uterus is anteflexed and tilted slightly to the left of midline. The ovaries reveals some very small follicles within them. No other pelvic mass or enlarged pelvic lymph nodes are seen. No significant free intraperitoneal fluid is evident. The deep pelvic sidewalls appear unremarkable. The urinary bladder is partially opacified and appears unremarkable. The skeleton reveals no acute fracture or or other aggressive bone lesion. Impression: 1. The gallbladder appears mildly dilated measuring up to 4.3 cm in diameter. There is mild increased attenuation without definite calcification within the upper posterior dependent portion of the gallbladder lumen. This could represent biliary sludge or tiny noncalcified gallstones. There also is a suggestion of a minimal amount of pericholecystic fluid adjacent to the anterior right lateral margin of the upper portion of the gallbladder. Further evaluation with a gallbladder ultrasound may be helpful. 2. No other acute process is seen within the abdomen or pelvis.
== END 2019-04-02 07:16 | disposition home or self-care (01) ==
LOC: ED 00:09
DX: R10.84 Generalized abdominal pain (principal); R11.2 Nausea with vomiting, unspecified
CPT/HCPCS: 36000; 36415; 71045; 71260; 74177; 80053; 80307; 81001; 81025; 82150; 83690; 83735; 83880; 84484; 85025; 85379; 85610; 85730; 93005; 96360; 96374; 96375; 96376; 99285; J2405; J3010; A9270-GY